=== PATIENT | male | born 1970 | race Caucasian/White ===

== ENCOUNTER → 2020-06-16 14:47 | Outpatient (REF) | payer MEDICAID, SELFPAY ==
--- NOTE | 2020-06-16 14:54 | ECG_ITS ---
Test Reason : LONG QT SYNDROME Blood Pressure : / mmHG Vent. Rate : 086 BPM Atrial Rate : 086 BPM P-R Int : 132 ms QRS Dur : 080 ms QT Int : 386 ms P-R-T Axes : 068 073 063 degrees QTc Int : 461 ms Normal sinus rhythm Normal ECG When compared with ECG of 14-DEC-2019 08:09, Previous ECG has undetermined rhythm, needs review Referred By: Mavis Díaz Electronically Signed By:Manfred Chappell
== END ==
LOC: HO.CARD 14:47
PROVIDERS: Visit Provider Family Medicine
DX: I48.91 Unspecified atrial fibrillation (principal)
CPT/HCPCS: 93005

== ENCOUNTER 2020-08-17 11:30 | Emergency (ER) | payer MEDICAID, SELFPAY ==
--- NOTE | 2020-08-17 | ECG_ITS ---
Test Reason : CHEST DISCOMFORT Blood Pressure : / mmHG Vent. Rate : 071 BPM Atrial Rate : 071 BPM P-R Int : 114 ms QRS Dur : 078 ms QT Int : 558 ms P-R-T Axes : 028 070 069 degrees QTc Int : 606 ms Normal sinus rhythm Nonspecific ST abnormality Abnormal ECG When compared with ECG of 16-JUN-2020 15:10, QT has lengthened Referred By: Generic ED Physician Electronically Signed By:ERA ANGELES MD
--- NOTE | ~2020-08-17 | XR_ITS ---
EXAMINATION: XR CHEST CLINICAL INFORMATION: Cough COMPARISON: Chest radiographs 12/11/2019, 08/29/2017 TECHNIQUE: PA x2 views of the chest was obtained. FINDINGS: Lungs are clear. There is no pneumothorax, airspace consolidation, groundglass opacity, or effusion. The heart is normal in size. The hilar and mediastinal contours and visualized bony structures are unremarkable. XR/XR chest 1V IMPRESSION: Unremarkable examination.
[2020-08-17 12:27] VITALS: BP 196/80; PULSE 65; RESP 16; TEMP 36.8; O2SAT 97; BMI 23.7
[2020-08-17 12:41] LABS: MANUAL DIFF FLAG NO
[2020-08-17 12:43] LABS: Basophils Percent Auto 0.3 % (0-2); Hematocrit 42.8 % (42-52); Hemoglobin 14.3 g/dl (14.0-18.0); Imm Gran Abs Auto 0.04 X10*3/uL (0.00-0.03); Imm Gran Pct Auto 0.3 % (0.0-0.4); Lymphocytes Absolute Auto 1.3 X10*3/uL (1.2-4.9); Mean Corpuscular HGB Conc 33.4 g/dl (31.0-36.0); Mean Corpuscular Hemoglobin 30.3 pg (27.0-33.0); Mean Corpuscular Volume 90.7 fL (80-98); Monocytes Absolute Auto 0.5 X10*3/uL (0.1-1.2); Monocytes Percent Auto 4.2 % (2-11); Neutrophils Absolute Auto 10.7 X10*3/uL (2.0-8.3); Neutrophils Percent Auto 85.2 % (45-73); Platelet Count 294 X10*3/uL (160-400); Red Blood Count 4.72 X10*6/uL (4.60-5.80); Red Cell Distribution Width 12.2 % (11.0-16.0); White Blood Count 12.5 X10*3/uL (4.8-10.8)
[2020-08-17 12:59] LABS: COVID-19 Test Negative (Negative)
[2020-08-17 13:06] LABS: Anion Gap 13 (12-20); Blood Urea Nitrogen 7 mg/dL (9-16); Calcium 9.4 mg/dL (8.4-10.2); Carbon Dioxide 30 mmol/L (22-29); Chloride 100 mmol/L (96-108); Estimated Glomerular Filt Rate > 60; Glucose Random 126 mg/dL (60-115); Potassium 3.4 mmol/L (3.3-5.1); Sodium 140 mmol/L (135-145)
[2020-08-17 14:38] LABS: Glucose Urine UA NEG (NEG); Leukocyte Esterase Urine NEG (NEG); Nitrite Urine NEG (NEG); PH 6.5 (5.0-8.0); Specific Gravity - Urine 1.025 (1.005-1.025); Urine Blood TRACE (NEG); Urine Ketones NEG (NEG); Urine Protein NEG (NEG-TRACE)
[2020-08-17 14:53] LABS: Appearance Urine CLEAR; Color Urine YELLOW
[2020-08-17 15:11] LABS: Mucus Urine 1+ /LPF; RBC Urine 0-2 /HPF (0); Squamous Epithelial Cell Urine TRACE /LPF; WBC Urine 0 /HPF (0-4)
[2020-08-17 18:27] VITALS: BP 151/77; PULSE 83; RESP 12; TEMP 36.5; O2SAT 100
--- NOTE | 2020-08-17 19:13 | ED.GENADULT ---
HPI - General Adult General Chief complaint: General Medical Stated complaint: weakness Time Seen by Provider: 08/17/20 19:00 Source: patient Mode of arrival: ambulatory Limitations: no limitations History of Present Illness HPI narrative: 50-year-old male walked to the emergency department for further evaluation patient is complaining of vague generalized weakness, abdominal discomfort, dry cough, patient claimed that his symptoms has improved while waiting to see a doctor in emergency department, but patient is requesting psych evaluation a patient admitted to hearing voices and feeling paranoid, patient also feels depressed without SI. Patient currently is homeless has no place to go tonight. Related Data Allergies Allergy/AdvReac Type Severity Reaction Status Date / Time No Known Allergies Allergy Unverified 02/24/20 17:27 Review of Systems Review of Systems: All other systems are reviewed and are negative Constitutional: Reports as per HPI and Reports no additional constitutional complaints Eyes: Reports as per HPI and Reports no additional eye complaints Reports system reviewed and no additional complaints, except as documented Cardiovascular: Reports as per HPI and Reports no additional cardiovascular complaints Respiratory: Reports as per HPI and Reports no additional respiratory complaints Gastrointestinal: Reports as per HPI and Reports no additional gastrointestinal complaints Genitourinary: Reports no additional female genitourinary complaints Musculoskeletal: Reports no additional musculoskeletal complaints Skin/Breast: Reports system reviewed and no additional complaints, except as docu Psychiatric: Reports no additional psychiatric complaints Endocrine: Reports no additional endocrine complaints Hematologic/Lymphatic: Reports no additional hematologic/lymphatic complaints Allergic/Immunologic: Reports no additional allergic/immunologic complaints Reports system reviewed and no additional complaints, except as documented and Reports Abnormal speech present PMFSH Past Medical History Medical History Anxiety Depression PTSD (post-traumatic stress disorder) Social History Social History Alcohol intake: never Smoking Status: Never smoker Use of substances other than those prescribed or required for medical reasons: No Advance Directives: No Advance Directives Information Provided: No Physical Exam Vital Signs: Vital Signs: Last Vital Signs Temp 97.7 F 08/17/20 18:27 Pulse 83 08/17/20 18:27 Resp 12 08/17/20 18:27 BP 151/77 H 08/17/20 18:27 Pulse Ox 100 08/17/20 18:27 Body Mass Index 23.7 Vital signs have been reviewed as appeared to be correct. Hypertensive. Heart rate normal. Respiration rate normal. Temperature normal. Oxygen saturation normal. Appearance: Alert. Oriented X3. No acute distress. Head: Normal external exam. Normocephalic. Atraumatic. No Emmanuel signs noted. No raccoon eyes noted Eyes: PERRLA. EOMI. Conjunctiva and sclera normal. Eyelids normal. ENT: TM's Normal. Pharynx normal. Uvula midline. Moist mucous membranes. No trismus noted. No drooling noted. No muffled voice noted. Neck: Normal inspection. Neck supple. FROM. No adenopathy. Thyroid Normal. No meningeal signs. No neck mass noted. CVS: Normal heart rate and rhythm. Heart sound normal. No murmurs noted. Pulses normal throughout. Respiratory: No respiratory distress. Painless inspiration. Breath sounds normal. No wheezes/rales/rhonchi noted. Chest nontender. No accessory muscle usage noted or decreased air movement noted. Abdomen: Soft and nontender. Bowel sounds normal in all 4 quadrants. No distention noted. No organomegaly noted. No visible injury noted. Back: No CVA tenderness. Full range of motion noted. Skin: Skin warm and dry. Normal skin color. Normal skin turgor. No rashes/lesions/lacerations noted. Extremities: No lower extremity edema. Extremities exhibit normal range of motion. Extremities nontender. Neuro: Oriented X 3. No motor deficit. No sensory deficit. Reflexes normal. Patient Appearance: Appropriate Patient Orientation: Person, Place, Time and Situation Level of Consciousness: Awake, Appropriate and Alert Patient Behavior: Talkative, Cooperative. Mood Description: Depressed Affect Description: Flat Patient Cognition Impaired: No Ability to Follow Directions: Good Speech Pattern: Spontaneous Speech Memory Description: Intact Hallucinations: Auditory hallucination, voices calling his names with no orders. Delusions: Not Present Thought Process: Logical Judgement: Fair Course Course Course Narrative: Assessment and plan. 50-year-old male who is homeless living in a hotel came in today with generalize nonspecific body ache, and coughing. Chest x-ray and physical exam and labs from today are unremarkable for acute pathology. Patient is requesting a psych evaluation because his paranoia, and depressive mood and auditory hallucination. Reevaluation(s) Reevaluation #1: 50-year-old male has been evaluated by care team, patient with chronic with 3 hallucination but appear organized, patient has no serious SI or HI, the plan is to admit the patient to respite tomorrow morning. Patient agreed on the plan. Medical workup is unremarkable Medical Decision Making Lab Data Lab results reviewed: Yes I reviewed the patient's lab results. Result diagrams: 08/17/20 12:36 08/17/20 12:36 Labs: Lab Results 08/17/20 08/17/20 08/17/20 Range/Units 12:36 12:36 12:36 WBC 12.5 H (4.8-10.8) X10*3/uL RBC 4.72 (4.60-5.80) X10*6/uL Hgb 14.3 (14.0-18.0) g/dl Hct 42.8 (42-52) % MCV 90.7 (80-98) fL MCH 30.3 (27.0-33.0) pg MCHC 33.4 (31.0-36.0) g/dl RDW 12.2 (11.0-16.0) % Plt Count 294 (160-400) X10*3/uL MPV 11.0 (9.4-12.4) fL Immature Gran % (Auto) 0.3 (0.0-0.4) % Neut % (Auto) 85.2 H (45-73) % Lymph % (Auto) 10.0 L (20-40) % [place] % (Auto) 4.2 (2-11) % Eos % (Auto) 0.0 (0-4) % Baso % (Auto) 0.3 (0-2) % Lymph # (Auto) 1.3 (1.2-4.9) X10*3/uL [place] # (Auto) 0.5 (0.1-1.2) X10*3/uL Eos # (Auto) 0.0 (0.0-0.4) X10*3/uL Baso # (Auto) 0.0 (0.0-0.2) X10*3/uL Abs Immat Gran (auto) 0.04 H (0.00-0.03) X10*3/uL Absolute Neuts (auto) 10.7 H (2.0-8.3) X10*3/uL Absolute Nucleated RBC 0.000 (0.0-0.012) X10*3/uL Nucleated RBC % (auto) 0.0 (0.0-0.2) /100WBC Sodium 140 (135-145) mmol/L Potassium 3.4 (3.3-5.1) mmol/L Chloride 100 (96-108) mmol/L Carbon Dioxide 30 H (22-29) mmol/L Anion Gap 13 (12-20) BUN 7 L (9-16) mg/dL Creatinine 0.99 (0.5-1.4) mg/dL Estim Creat Clear Calc 94.0 Estimated GFR > 60 Random Glucose 126 H (60-115) mg/dL Calcium 9.4 (8.4-10.2) mg/dL Urine Color Urine Appearance Urine pH (5.0-8.0) Ur Specific [place] (1.005-1.025) Urine Protein (NEG-TRACE) MG/DL Urine Glucose (UA) (NEG) MG/DL Urine Ketones (NEG) MG/DL Urine Blood (NEG) Urine Nitrite (NEG) Ur Leukocyte Esterase (NEG) Urine RBC (0) /HPF Urine WBC (0-4) /HPF Ur Squamous Epith Cells /LPF Urine Bacteria /LPF Urine Mucus /LPF Urine Opiates Screen (Not Detect) Ur Barbiturates Screen (Not Detect) Ur Phencyclidine Scrn (Not Detect) Ur Amphetamines Screen (Not Detect) U Benzodiazepines Scrn (Not Detect) Urine Cocaine Screen (Not Detect) U Marijuana (THC) Screen (Not Detect) COVID-19 (LICHA) Negative (Negative) COVID-19 Clin Com See Note 08/17/20 08/17/20 Range/Units 14:08 14:08 WBC (4.8-10.8) X10*3/uL RBC (4.60-5.80) X10*6/uL Hgb (14.0-18.0) g/dl Hct (42-52) % MCV (80-98) fL MCH (27.0-33.0) pg MCHC (31.0-36.0) g/dl RDW (11.0-16.0) % Plt Count (160-400) X10*3/uL MPV (9.4-12.4) fL Immature Gran % (Auto) (0.0-0.4) % Neut % (Auto) (45-73) % Lymph % (Auto) (20-40) % [place] % (Auto) (2-11) % Eos % (Auto) (0-4) % Baso % (Auto) (0-2) % Lymph # (Auto) (1.2-4.9) X10*3/uL [place] # (Auto) (0.1-1.2) X10*3/uL Eos # (Auto) (0.0-0.4) X10*3/uL Baso # (Auto) (0.0-0.2) X10*3/uL Abs Immat Gran (auto) (0.00-0.03) X10*3/uL Absolute Neuts (auto) (2.0-8.3) X10*3/uL Absolute Nucleated RBC (0.0-0.012) X10*3/uL Nucleated RBC % (auto) (0.0-0.2) /100WBC Sodium (135-145) mmol/L Potassium (3.3-5.1) mmol/L Chloride (96-108) mmol/L Carbon Dioxide (22-29) mmol/L Anion Gap (12-20) BUN (9-16) mg/dL Creatinine (0.5-1.4) mg/dL Estim Creat Clear Calc Estimated GFR Random Glucose (60-115) mg/dL Calcium (8.4-10.2) mg/dL Urine Color YELLOW Urine Appearance CLEAR Urine pH 6.5 (5.0-8.0) Ur Specific [place] 1.025 (1.005-1.025) Urine Protein NEG (NEG-TRACE) MG/DL Urine Glucose (UA) NEG (NEG) MG/DL Urine Ketones NEG (NEG) MG/DL Urine Blood TRACE (NEG) Urine Nitrite NEG (NEG) Ur Leukocyte Esterase NEG (NEG) Urine RBC 0-2 (0) /HPF Urine WBC 0 (0-4) /HPF Ur Squamous Epith Cells TRACE /LPF Urine Bacteria NONE /LPF Urine Mucus 1+ /LPF Urine Opiates Screen Not Detected (Not Detect) Ur Barbiturates Screen Not Detected (Not Detect) Ur Phencyclidine Scrn Not Detected (Not Detect) Ur Amphetamines Screen Not Detected (Not Detect) U Benzodiazepines Scrn POSITIVE H (Not Detect) Urine Cocaine Screen Not Detected (Not Detect) U Marijuana (THC) Screen Not Detected (Not Detect) COVID-19 (LICHA) (Negative) COVID-19 Clin Com Imaging Data Chest x-ray: Radiologist's impression: Unremarkable examination. Discharge Plan Discharge Clinical Impression: Cough, Generalized weakness, Auditory hallucination Depression Qualifiers: Depression Type: major depressive disorder Major depression recurrence: unspecified whether recurrent Active/Remission status: currently active Psychotic features: with psychotic features Patient Disposition: Home, Self-Care Instructions: Depression (ED) Referrals: Mavis Díaz MD [Primary Care Provider] - 2 days
--- NOTE | 2020-08-17 19:34 | PC.NURSE ---
Confirmed fax was received by [facility]. Report they will try to get to him on the overnight, otherwise it will be tomorrow morning
--- NOTE | 2020-08-17 19:39 | PC.NURSE ---
Security at bedside and pt changed over. Belongings list filled out and put into chart. Belongings into locker. Pt calm and cooperative.
--- NOTE | 2020-08-17 19:46 | PC.NURSE ---
CARE team consulted r/t N wait time. Allyssa to come down to ED and see pt. Report given to karina Venegas. Pt moved into position for sitter access, [id number]
--- NOTE | 2020-08-17 20:06 | PC.NURSE ---
pt a&O, no sob or chest pain. pt reports that he started hearing voices and seeing shadows 5 days ago. Waiting for [facility]
[2020-08-17 20:56] LABS: Amphetamine Screen Urine Not Detected (Not Detect); Barbiturates, Urine Not Detected (Not Detect); Benzodiazepines Screen Urine POSITIVE (Not Detect); Cannabinoid Screen Urine Not Detected (Not Detect); Cocaine Screen Urine Not Detected (Not Detect); Opiate Screen Urine Not Detected (Not Detect); Phencyclidine Screen Urine Not Detected (Not Detect)
--- NOTE | 2020-08-17 21:36 | PC.NURSE ---
care team in to assess pt. plan is for follow up with N tomorrow morning.
--- NOTE | 2020-08-17 21:36 | PC.NURSE ---
pt denies any self harm. Discharge plan review with .
--- NOTE | 2020-08-17 21:49 | MHC.CARE ---
CARE Team meets with pt at the request of Annie CELAYA to see if pt needs to wait for [facility] assessment. Pt identifies that he has been experiencing subtle AH for the past year, stating that he intermittently hears his name being called. Pt denies visual hallucinations. Pt's partner joins half way through this intervention and reports that for the past few days, pt has been increasingly despondent, eating and drinking very little. they report that pt's health has been declining over the past year and he is feeling weak and has lost weight. Pt also reports high anxiety, which he has struggled with for many years. He identifies recently feeling paranoid that someone may have tampered with his medications and also identifies anxious thoughts about police coming for him. He has a long hx of incarceration, most recent was 7 years for robbing a bank and he was released three years ago. He reported extensive hx of substance use and is currently on methadone. He denies any recent substance use. Pt has been homeless since being released from [facility] 3 years ago, often sleeping in his car or staying in motels. He identifies that increased symptoms may correlate with increased stress about his limited financial resources, as family has recently stopped taking his calls and are no longer supporting him. Pt has an outpatient therapist and psychiatrist at [facility]. He has been compliant with meds, however, states that he has not spoken with therapist or psychiatrist about increased paranoia or AH. He denies SI/HI and Dr. Leal reports that there are no medical causes for sx and pt is medically cleared. Pt does not meet criteria for IPLOC at this time, as he is not in imminent risk, and symptoms could likely be addressed on an outpatient basis. Pt and partner express interest in respite, which would be an appropriate level of care for current presentation. CARE Team speaks with Flor from [facility] who reports that there are no respite beds tonight, but pt should call tomorrow morning to inquire about bed availability and arrange for community crisis assessment tomorrow. Pt is not in imminent dnager and therefore it is not recommended that he wait in the ED for full crisis assessment. Recommendation discussed with Dr. Leal who agrees with plan to d/c. Pt and partner agree to call provided crisis hotline or return to ED if symptoms worsen.
== END 2020-08-17 21:53 | disposition home or self-care (01) ==
PROVIDERS: Emergency Provider Emergency Medicine; PCP Family Medicine
DX: F33.1 Major depressive disorder, recurrent, moderate (principal); R44.0 Auditory hallucinations; R05 Cough; R53.1 Weakness; Z20.822 Contact with and (suspected) exposure to COVID-19; Z59.0 Homelessness; Z79.899 Other long term (current) drug therapy
CPT/HCPCS: 36415; 71045; 80048; 80307; 81001; 85025; 87635; 93005; 99284

== ENCOUNTER 2020-10-20 16:20 | Emergency (ER) | payer MEDICAID, SELFPAY ==
--- NOTE | ~2020-10-20 | XR_ITS ---
EXAMINATION: XR CHEST CLINICAL INFORMATION: Chest pain COMPARISON: None TECHNIQUE: Frontal view of the chest was obtained. FINDINGS: No significant abnormality is noted involving the heart, lungs, mediastinum, bony thorax or soft tissues. XR/XR chest 1V IMPRESSION: Unremarkable examination.
--- NOTE | 2020-10-20 18:11 | ECG_ITS ---
Test Reason : CHEST PAIN Blood Pressure : / mmHG Vent. Rate : 098 BPM Atrial Rate : 098 BPM P-R Int : 120 ms QRS Dur : 090 ms QT Int : 338 ms P-R-T Axes : 079 092 010 degrees QTc Int : 431 ms Poor data quality Normal sinus rhythm Rightward axis Abnormal ECG When compared with ECG of 17-AUG-2020 18:48, [place] has shifted rightward Referred By: Suma Cardona Electronically Signed By:Manfred Chappell
[2020-10-20 18:23] VITALS: BP 146/81; PULSE 86; RESP 18; TEMP 36.9; O2SAT 100; BMI 25.1
[2020-10-20] MEDS: Lidocaine 4 % Patch ADH..PATCH 1 PATCH TRANSDERMA (18:50)
[2020-10-20] MEDS: Ibuprofen 600 MG TABLET PO (18:51)
[2020-10-20 19:10] LABS: MANUAL DIFF FLAG NO
[2020-10-20 19:11] LABS: Basophils Absolute Auto 0.1 X10*3/uL (0.0-0.2); Basophils Percent Auto 0.5 % (0-2); Eosinophils Percent Auto 0.2 % (0-4); Hematocrit 43.7 % (42-52); Hemoglobin 14.2 g/dl (14.0-18.0); Imm Gran Abs Auto 0.04 X10*3/uL (0.00-0.03); Imm Gran Pct Auto 0.4 % (0.0-0.4); Lymphocytes Absolute Auto 1.3 X10*3/uL (1.2-4.9); Lymphocytes Percent Auto 14.3 % (20-40); Mean Corpuscular HGB Conc 32.5 g/dl (31.0-36.0); Mean Corpuscular Hemoglobin 29.8 pg (27.0-33.0); Mean Corpuscular Volume 91.6 fL (80-98); Mean Platelet Volume 10.1 fL (9.4-12.4); Monocytes Absolute Auto 0.3 X10*3/uL (0.1-1.2); Monocytes Percent Auto 3.2 % (2-11); Neutrophils Absolute Auto 7.4 X10*3/uL (2.0-8.3); Neutrophils Percent Auto 81.4 % (45-73); Platelet Count 310 X10*3/uL (160-400); Red Blood Count 4.77 X10*6/uL (4.60-5.80); Red Cell Distribution Width 12.4 % (11.0-16.0); White Blood Count 9.1 X10*3/uL (4.8-10.8)
[2020-10-20 19:26] LABS: COVID-19 Test Negative (Negative)
[2020-10-20 19:30] LABS: Ethanol < 10 mg/dL
[2020-10-20 19:35] LABS: Alanine Aminotransferase 63 U/L (0-40); Albumin Level 4.5 g/dL (3.5-5.0); Alkaline Phosphatase 85 U/L (39-117); Anion Gap 12 (12-20); Aspartate Amino Transferase 127 U/L (5-37); Bilirubin Direct 0.2 mg/dL (0.0-0.5); Bilirubin Total 0.4 mg/dL (0.0-1.0); Blood Urea Nitrogen 17 mg/dL (9-16); Calcium 9.8 mg/dL (8.4-10.2); Carbon Dioxide 30 mmol/L (22-29); Chloride 101 mmol/L (96-108); Creatinine Clr Calc Pharmacy 91.2; Estimated Glomerular Filt Rate > 60; Glucose Random 89 mg/dL (60-115); Magnesium 2.3 mg/dL (1.6-2.6); Potassium 5.4 mmol/L (3.3-5.1); Sodium 138 mmol/L (135-145); Total Protein 7.6 g/dL (6.5-8.0)
[2020-10-20 19:41] LABS: B Type Natriuretic Peptide < 10 pg/mL (<100); Troponin-I High Sensitivity 5.6 ng/L (<3.5-35.0)
[2020-10-20] MEDS: Cyclobenzaprine HCl 10 MG TABLET PO (19:55)
[2020-10-20 19:56] VITALS: BP 115/75; PULSE 90; RESP 18; O2SAT 100
--- NOTE | 2020-10-20 20:01 | ED_ITS ---
HPI - Back Pain/Injury General Chief Complaint: Dyspnea <GALLO Suárez Last Filed: 10/20/20 23:29> Stated Complaint: Chest pain <GALLO Suárez Last Filed: 10/20/20 23:29> Time Seen by Provider: 10/20/20 17:48 <GALLO Suárez Last Filed: 10/20/20 23:29> Source: patient <GALLO Suárez Last Filed: 10/20/20 23:29> Mode of arrival: ambulatory <GALLO Suárez Last Filed: 10/20/20 23:29> Limitations: no limitations <GALLO Suárez Last Filed: 10/20/20 23:29> History of Present Illness HPI Narrative: 50-year-old male with a past medical history of myocardial infarction secondary to cocaine usage and nonischemic cardiomyopathy with an ejection fraction of 45%, prior drug usage of cocaine, prolonged QT interval, postural hypotension, syncopal episodes, anxiety, depression and PTSD presenting to the ED with complaints of left scapular pain for the past week worse today radiating to his left chest and reports strange sensations to touch. Denies any recent drug usage or alcohol usage. Denies any trauma, lightheadedness, dizziness, changes in vision, dyspnea on exertion, orthopnea, palpitations, nausea/vomiting/diarrhea/constipation, abdominal pain, black or bloody stools, lower extremity edema or calf tenderness. Denies recent travel on a long plane train or car ride. Denies history of hypercoagulation disorder. Denies recent surgery or immobilization. Denies being on any estrogen. Denies any additional complaints or concerns at this time. <GALLO Suárez - Last Filed: 10/20/20 23:29> MD elicited complaint: back pain <GALLO Suárez Last Filed: 10/20/20 23:29> Onset (ago): week(s) (1 week ) <GALLO Suárez Last Filed: 10/20/20 23:29> Timing: constant <GALLO Suárez Last Filed: 10/20/20 23:29> Severity: moderate <GALLO Suárez Last Filed: 10/20/20 23:29> Similar Symptoms Previously: No <GALLO Suárez - Last Filed: 10/20/20 23:29> Quality: aching <GALLO Suárez - Last Filed: 10/20/20 23:29> Location: left upper back (/scapular aspect) <GALLO Suárez - Last Filed: 10/20/20 23:29> Radiation: chest (Left anterior chest wall) <GALLO Suárez - Last Filed: 10/20/20 23:29> Exacerbating factors: movement, deep breaths and other (Palpation) <GALLO Suárez - Last Filed: 10/20/20 23:29> Relieving factors: none <GALLO Suárez Last Filed: 10/20/20 23:29> Context: other (Cannot recall) <GALLO Suárez - Last Filed: 10/20/20 23:29> Associated symptoms: other (Pain with deep inspiration) <GALLO Suárez Last Filed: 10/20/20 23:29> Work related injury: No <GALLO Suárez - Last Filed: 10/20/20 23:29> Related Data Home Medications: Previous Rx's Medication Instructions Recorded acetaminophen [Tylenol Extra 1,000 mg PO QID PRN #14 tab 10/20/20 Strength] cyclobenzaprine 10 mg PO Q8H #10 tab 10/20/20 ibuprofen 800 mg PO Q8H PRN #14 tab 10/20/20 lidocaine HCl [Aspercreme 1 appl TOPICAL BID PRN #120 g 10/20/20 (lidocaine HCl)] <GALLO Suárez Last Filed: 10/20/20 23:29> Allergies/Adverse Reactions: Allergies Allergy/AdvReac Type Severity Reaction Status Date / Time No Known Allergies Allergy Verified 10/20/20 18:22 <GALLO Suárez Last Filed: 10/20/20 23:29> Review of Systems Review of Systems: Constitutional : No trauma, No Weight loss, No Fever, No Chills, ENT/Mouth : No Hearing loss, No Ear Pain, No Nasal Congestion, No Sinus Pain, No Hoarseness, No sore throat, No Rhinorrhea, No Swallowing Difficulty Cardiovascular : Positive chest wall pain with pain with deep inspiration/shortness of breath Respiratory : No Cough, No Dyspnea Gastrointestinal : No Nausea, No Vomiting, No Diarrhea, No abdominal Pain, No Hematochezia, No Melena Genitourinary : No Dysuria, No Urinary Frequency, No Hematuria, No Urinary or Bowel Incontinence/retention Musculoskeletal : + Back pain/scapular pain radiating to left anterior chest wa ll, No neck pain, No joint stiffness, No joint swelling Skin : No Skin Lesions, No rash or signs of infection Neuro : No Weakness, No radiation, No Numbness, No Paresthesias, No headache, no loss of bowel or bladder incontinence, no saddle anesthesia, Focal weakness, No radiation Denies history of IV drug usage. <GALLO Suárez - Last Filed: 10/20/20 23:29> Yes all other systems are reviewed and are negative <GALLO Suárez - Last Filed: 10/20/20 23:29> [facility] Past Medical History Attestation statement: The following information was validated with the patient. <GALLO Suárez - Last Filed: 10/20/20 23:29> Medical History: Medical History Anxiety Depression PTSD (post-traumatic stress disorder) <GALLO Suárez - Last Filed: 10/20/20 23:29> Social History Social History: Social History Alcohol intake: never Smoked in Last 30 Days: No Use of substances other than those prescribed or required for medical reasons: No Advance Directives: No Advance Directives Information Provided: Yes <GALLO Suárez - Last Filed: 10/20/20 23:29> Physical Exam Vital Signs: Vital Signs: Last Vital Signs Temp 98.4 F 10/20/20 18:23 Pulse 90 10/20/20 21:40 Resp 18 10/20/20 21:40 BP 135/86 10/20/20 21:40 Pulse Ox 97 10/20/20 21:40 Body Mass Index 25.1 vital signs have been reviewed as normal and appeared to be correct. Blood pressure hypertensive 146/81. Heart rate normal. Respiration rate normal. Temperature normal. Oxygen saturation normal. <GALLO Suárez - Last Filed: 10/20/20 23:29> Vital Signs: Last Vital Signs Temp 98.4 F 10/20/20 18:23 Pulse 90 10/20/20 21:40 Resp 18 10/20/20 21:40 BP 135/86 10/20/20 21:40 Pulse Ox 97 10/20/20 21:40 Body Mass Index 25.1 <Dawson Young MD - Last Filed: 11/13/20 14:37> Appearance: Alert. Oriented X3. No acute distress. Head: Normal external exam. Normocephalic. Atraumatic. Eyes: PERRLA. EOMI. Conjunctiva and sclera normal. Eyelids normal. ENT: EAC normal. TM's Normal. Pharynx normal. Uvula midline. Moist mucous membranes. Neck: Normal inspection. Neck supple. FROM. No adenopathy. Thyroid Normal. No meningeal signs. No neck mass noted. CVS: Normal heart rate and rhythm. Heart sound normal. No murmurs noted. Pulses normal throughout. Respiratory: No respiratory distress. Painless inspiration. Breath sounds normal. No wheezes/rales/rhonchi noted. Chest nontender. No accessory muscle usage noted or decreased air movement noted. No rashes/lesions hash induration/fluctuance or signs of infection noted. Abdomen: Soft and nontender. Bowel sounds normal in all 4 quadrants. No distention noted. No organomegaly noted. No visible injury noted. Back: No CVA tenderness. Full range of motion noted. No obvious deformities, or edema. No mid thoracic/lumbar tenderness. No paraspinous tenderness. Patient with tenderness to palpation to left scapular region. Full ROM in back and lower extremities. 5/5 strength hip extension/flexion, abduction, adduction. Straight leg raise test negative on right; Straight leg raise test negative on left; Reflexes normal ankle and knee bilaterally; EHL motor strength normal bilaterally. No rashes/lesion/induration/fluctuance or signs infection noted. Skin: Skin warm and dry. Normal skin color. Normal skin turgor. No rashes/lesions/lacerations noted. Extremities: No lower extremity edema. Extremities exhibit normal range of motion. Extremities nontender. Neuro: Oriented X 3. No motor deficit. No sensory deficit. Reflexes normal. Patient has a normal steady gait. <GALLO Suárez - Last Filed: 10/20/20 2 3:29> Course Course Course Narrative: 9pm - labs reviewed and patient potassium is 5.4. BUN 17. AST/ALT 127/63. Troponin 5.6. All other labs are within normal limits. UA within normal limits no evidence of UTI. Patient positive for benzos negative for all other drugs. Patient negative for EtOH. Negative for COVID. Chest x-ray negative for any acute processes. EKG normal sinus rhythm no acute ischemic changes and similar when compared to prior EKG. - therefore patient will have a repeat troponin. I also added hepatitis panel which includes hepatitis a/B/C due to elevated LFTs, provide 45gm of Kayexalate then recheck the patient's potassium level. <GALLO Suárez - Last Filed: 10/20/20 23:29> I have reviewed the chart <Dawson Young MD - Last Filed: 11/13/20 14:37> Reevaluation(s) Reevaluation #1: - repeat troponin negative delta. Repeat potassium 4.9 which is improved after the Kayexalate. Pending hepatitis panel. - patient most likely muscle strain will DC home with symptomatic treatment instructions to return if any new or worsening symptoms to follow up with primar care provider. Patient understands agrees with this plan. <GALLO Suárez - Last Filed: 10/20/20 23:29> Time: 23:26 <GALLO Suárez - Last Filed: 10/20/20 23:29> MDM - Back Pain/Injury MDM Narrative Medical decision making narrative: 17:48pm - 50-year-old male with a past medical history of myocardial infarction secondary to cocaine usage and nonischemic cardiomyopathy with an ejection fraction of 45%, prior drug usage of cocaine, prolonged QT interval, postural hypotension, syncopal episodes, anxiety, depression and PTSD presenting to the ED with complaints of left scapular pain for the past week worse today radiating to his left chest and reports strange sensations to touch. - on exam patient has tenderness to palpation to left lower scapular region with mild soft tissue swelling. No rashes/lesion/induration or signs of infection noted. Patient also has tenderness to palpation on the left anterior chest wall/lateral aspect. No rashes/in/induration/fluctuance or signs of action noted. Otherwise patient is alert and oriented x3. Not in any acute distress. Vital signs are stable and within normal limits. CV RRR. Lungs clear to auscultation. Abdomen is soft and nontender. No lower extremity edema noted or calf tenderness noted. - Plan: Labs, chest x-ray, EKG. Provide 600 mg of Motrin, 10 mg of Flexeril and 1 Lidoderm patch and re-evaluate. <GALLO Suárez - Last Filed: 10/20/20 23:29> Medical Records Attestation: I reviewed the patient's medical records. <GALLO Suárez - Last Filed: 10/20/20 23:29> Lab Data Attestation: I reviewed the patient's lab results. <GALLO Suárez - Last Filed: 10/20/20 23:29> Result diagrams: : 10/20/20 19:04 10/20/20 22:10 <GALLO Suárez - Last Filed: 10/20/20 23:29> Labs: Lab Results 10/20/20 10/20/20 10/20/20 Range/Units 09:03 19:03 19:03 WBC (4.8-10.8) X10*3/uL RBC (4.60-5.80) X10*6/uL Hgb (14.0-18.0) g/dl Hct (42-52) % MCV (80-98) fL MCH (27.0-33.0) pg MCHC (31.0-36.0) g/dl RDW (11.0-16.0) % Plt Count (160-400) X10*3/uL MPV (9.4-12.4) fL Immature Gran % (Auto) (0.0-0.4) % Neut % (Auto) (45-73) % Lymph % (Auto) (20-40) % [place] % (Auto) (2-11) % Eos % (Auto) (0-4) % Baso % (Auto) (0-2) % Lymph # (Auto) (1.2-4.9) X10*3/uL [place] # (Auto) (0.1-1.2) X10*3/uL Eos # (Auto) (0.0-0.4) X10*3/uL Baso # (Auto) (0.0-0.2) X10*3/uL Abs Immat Gran (auto) (0.00-0.03) X10*3/uL Absolute Neuts (auto) (2.0-8.3) X10*3/uL Absolute Nucleated RBC (0.0-0.012) X10*3/uL Nucleated RBC % (auto) (0.0-0.2) /100WBC PT (10.8-13.0) SEC INR (0.9-1.1) D-Dimer NG/ML Hold Blue Top Sodium (135-145) mmol/L Potassium (3.3-5.1) mmol/L Chloride (96-108) mmol/L Carbon Dioxide (22-29) mmol/L Anion Gap (12-20) BUN (9-16) mg/dL Creatinine (0.5-1.4) mg/dL Estim Creat Clear Calc Estimated GFR Random Glucose (60-115) mg/dL Calcium (8.4-10.2) mg/dL Magnesium (1.6-2.6) mg/dL Total Bilirubin (0.0-1.0) mg/dL Direct Bilirubin (0.0-0.5) mg/dL AST (5-37) U/L ALT (0-40) U/L Alkaline Phosphatase (39-117) U/L Troponin I High Sens 5.6 (<3.5-35.0) ng/L B-Natriuretic Peptide < 10 (<100) pg/mL Total Protein (6.5-8.0) g/dL Albumin (3.5-5.0) g/dL Urine Color Urine Appearance Urine pH (5.0-8.0) Ur Specific [place] (1.005-1.025) Urine Protein (NEG-TRACE) MG/DL Urine Glucose (UA) (NEG) MG/DL Urine Ketones (NEG) MG/DL Urine Blood (NEG) Urine Nitrite (NEG) Ur Leukocyte Esterase (NEG) Urine Opiates Screen (Not Detect) Ur Barbiturates Screen (Not Detect) Ur Phencyclidine Scrn (Not Detect) Ur Amphetamines Screen (Not Detect) U Benzodiazepines Scrn (Not Detect) Urine Cocaine Screen (Not Detect) U Marijuana (THC) Screen (Not Detect) Ethyl Alcohol mg/dL COVID-19 (LICHA) Negative (Negative) COVID-19 Clin Com See Note Hepatitis A IgM Ab Nonreactive (Nonreactive) Hep Bs Antigen Negative (Negative) Hep Bs Antibody NONREACTIVE (Nonreactive) Hep B Core Total Ab Nonreactive (Nonreactive) Hepatitis C Ab (EIA) Nonreactive (Nonreactive) 10/20/20 10/20/20 10/20/20 Range/Units 19:04 19:04 19:04 WBC 9.1 (4.8-10.8) X10*3/uL RBC 4.77 (4.60-5.80) X10*6/uL Hgb 14.2 (14.0-18.0) g/dl Hct 43.7 (42-52) % MCV 91.6 (80-98) fL MCH 29.8 (27.0-33.0) pg MCHC 32.5 (31.0-36.0) g/dl RDW 12.4 (11.0-16.0) % Plt Count 310 (160-400) X10*3/uL MPV 10.1 (9.4-12.4) fL Immature Gran % (Auto) 0.4 (0.0-0.4) % Neut % (Auto) 81.4 H (45-73) % Lymph % (Auto) 14.3 L (20-40) % [place] % (Auto) 3.2 (2-11) % Eos % (Auto) 0.2 (0-4) % Baso % (Auto) 0.5 (0-2) % Lymph # (Auto) 1.3 (1.2-4.9) X10*3/uL [place] # (Auto) 0.3 (0.1-1.2) X10*3/uL Eos # (Auto) 0.0 (0.0-0.4) X10*3/uL Baso # (Auto) 0.1 (0.0-0.2) X10*3/uL Abs Immat Gran (auto) 0.04 H (0.00-0.03) X10*3/uL Absolute Neuts (auto) 7.4 (2.0-8.3) X10*3/uL Absolute Nucleated RBC 0.000 (0.0-0.012) X10*3/uL Nucleated RBC % (auto) 0.0 (0.0-0.2) /100WBC PT 12.9 (10.8-13.0) SEC INR 1.1 (0.9-1.1) D-Dimer < 200 NG/ML Hold Blue Top SEE NOTE Sodium 138 (135-145) mmol/L Potassium 5.4 H D (3.3-5.1) mmol/L Chloride 101 (96-108) mmol/L Carbon Dioxide 30 H (22-29) mmol/L Anion Gap 12 (12-20) BUN 17 H D (9-16) mg/dL Creatinine 1.02 (0.5-1.4) mg/dL Estim Creat Clear Calc 91.2 Estimated GFR > 60 Random Glucose 89 (60-115) mg/dL Calcium 9.8 (8.4-10.2) mg/dL Magnesium 2.3 (1.6-2.6) mg/dL Total Bilirubin 0.4 (0.0-1.0) mg/dL Direct Bilirubin 0.2 (0.0-0.5) mg/dL AST 127 H (5-37) U/L ALT 63 H (0-40) U/L Alkaline Phosphatase 85 (39-117) U/L Troponin I High Sens (<3.5-35.0) ng/L B-Natriuretic Peptide (<100) pg/mL Total Protein 7.6 (6.5-8.0) g/dL Albumin 4.5 (3.5-5.0) g/dL Urine Color Urine Appearance Urine pH (5.0-8.0) Ur Specific [place] (1.005-1.025) Urine Protein (NEG-TRACE) MG/DL Urine Glucose (UA) (NEG) MG/DL Urine Ketones (NEG) MG/DL Urine Blood (NEG) Urine Nitrite (NEG) Ur Leukocyte Esterase (NEG) Urine Opiates Screen (Not Detect) Ur Barbiturates Screen (Not Detect) Ur Phencyclidine Scrn (Not Detect) Ur Amphetamines Screen (Not Detect) U Benzodiazepines Scrn (Not Detect) Urine Cocaine Screen (Not Detect) U Marijuana (THC) Screen (Not Detect) Ethyl Alcohol mg/dL COVID-19 (LICHA) (Negative) COVID-19 Clin Com Hepatitis A IgM Ab (Nonreactive) Hep Bs Antigen (Negative) Hep Bs Antibody (Nonreactive) Hep B Core Total Ab (Nonreactive) Hepatitis C Ab (EIA) (Nonreactive) 10/20/20 10/20/20 10/20/20 Range/Units 19:04 20:30 20:30 WBC (4.8-10.8) X10*3/uL RBC (4.60-5.80) X10*6/uL Hgb (14.0-18.0) g/dl Hct (42-52) % MCV (80-98) fL MCH (27.0-33.0) pg MCHC (31.0-36.0) g/dl RDW (11.0-16.0) % Plt Count (160-400) X10*3/uL MPV (9.4-12.4) fL Immature Gran % (Auto) (0.0-0.4) % Neut % (Auto) (45-73) % Lymph % (Auto) (20-40) % [place] % (Auto) (2-11) % Eos % (Auto) (0-4) % Baso % (Auto) (0-2) % Lymph # (Auto) (1.2-4.9) X10*3/uL [place] # (Auto) (0.1-1.2) X10*3/uL Eos # (Auto) (0.0-0.4) X10*3/uL Baso # (Auto) (0.0-0.2) X10*3/uL Abs Immat Gran (auto) (0.00-0.03) X10*3/uL Absolute Neuts (auto) (2.0-8.3) X10*3/uL Absolute Nucleated RBC (0.0-0.012) X10*3/uL Nucleated RBC % (auto) (0.0-0.2) /100WBC PT (10.8-13.0) SEC INR (0.9-1.1) D-Dimer NG/ML Hold Blue Top Sodium (135-145) mmol/L Potassium (3.3-5.1) mmol/L Chloride (96-108) mmol/L Carbon Dioxide (22-29) mmol/L Anion Gap (12-20) BUN (9-16) mg/dL Creatinine (0.5-1.4) mg/dL Estim Creat Clear Calc Estimated GFR Random Glucose (60-115) mg/dL Calcium (8.4-10.2) mg/dL Magnesium (1.6-2.6) mg/dL Total Bilirubin (0.0-1.0) mg/dL Direct Bilirubin (0.0-0.5) mg/dL AST (5-37) U/L ALT (0-40) U/L Alkaline Phosphatase (39-117) U/L Troponin I High Sens (<3.5-35.0) ng/L B-Natriuretic Peptide (<100) pg/mL Total Protein (6.5-8.0) g/dL Albumin (3.5-5.0) g/dL Urine Color YELLOW Urine Appearance CLEAR Urine pH 7.5 (5.0-8.0) Ur Specific [place] 1.015 (1.005-1.025) Urine Protein NEG (NEG-TRACE) MG/DL Urine Glucose (UA) NEG (NEG) MG/DL Urine Ketones NEG (NEG) MG/DL Urine Blood NEG (NEG) Urine Nitrite NEG (NEG) Ur Leukocyte Esterase NEG (NEG) Urine Opiates Screen Not Detected (Not Detect) Ur Barbiturates Screen Not Detected (Not Detect) Ur Phencyclidine Scrn Not Detected (Not Detect) Ur Amphetamines Screen Not Detected (Not Detect) U Benzodiazepines Scrn POSITIVE H (Not Detect) Urine Cocaine Screen Not Detected (Not Detect) U Marijuana (THC) Screen Not Detected (Not Detect) Ethyl Alcohol < 10 mg/dL COVID-19 (LICHA) (Negative) COVID-19 Clin Com Hepatitis A IgM Ab (Nonreactive) Hep Bs Antigen (Negative) Hep Bs Antibody (Nonreactive) Hep B Core Total Ab (Nonreactive) Hepatitis C Ab (EIA) (Nonreactive) 10/20/20 10/20/20 Range/Units 22:10 22:10 WBC (4.8-10.8) X10*3/uL RBC (4.60-5.80) X10*6/uL Hgb (14.0-18.0) g/dl Hct (42-52) % MCV (80-98) fL MCH (27.0-33.0) pg MCHC (31.0-36.0) g/dl RDW (11.0-16.0) % Plt Count (160-400) X10*3/uL MPV (9.4-12.4) fL Immature Gran % (Auto) (0.0-0.4) % Neut % (Auto) (45-73) % Lymph % (Auto) (20-40) % [place] % (Auto) (2-11) % Eos % (Auto) (0-4) % Baso % (Auto) (0-2) % Lymph # (Auto) (1.2-4.9) X10*3/uL [place] # (Auto) (0.1-1.2) X10*3/uL Eos # (Auto) (0.0-0.4) X10*3/uL Baso # (Auto) (0.0-0.2) X10*3/uL Abs Immat Gran (auto) (0.00-0.03) X10*3/uL Absolute Neuts (auto) (2.0-8.3) X10*3/uL Absolute Nucleated RBC (0.0-0.012) X10*3/uL Nucleated RBC % (auto) (0.0-0.2) /100WBC PT (10.8-13.0) SEC INR (0.9-1.1) D-Dimer NG/ML Hold Blue Top Sodium 135 (135-145) mmol/L Potassium 4.9 (3.3-5.1) mmol/L Chloride 99 (96-108) mmol/L Carbon Dioxide 29 (22-29) mmol/L Anion Gap 12 (12-20) BUN 16 (9-16) mg/dL Creatinine 0.97 (0.5-1.4) mg/dL Estim Creat Clear Calc 95.9 Estimated GFR > 60 Random Glucose 88 (60-115) mg/dL Calcium 9.9 (8.4-10.2) mg/dL Magnesium (1.6-2.6) mg/dL Total Bilirubin (0.0-1.0) mg/dL Direct Bilirubin (0.0-0.5) mg/dL AST (5-37) U/L ALT (0-40) U/L Alkaline Phosphatase (39-117) U/L Troponin I High Sens 4.0 (<3.5-35.0) ng/L B-Natriuretic Peptide (<100) pg/mL Total Protein (6.5-8.0) g/dL Albumin (3.5-5.0) g/dL Urine Color Urine Appearance Urine pH (5.0-8.0) Ur Specific [place] (1.005-1.025) Urine Protein (NEG-TRACE) MG/DL Urine Glucose (UA) (NEG) MG/DL Urine Ketones (NEG) MG/DL Urine Blood (NEG) Urine Nitrite (NEG) Ur Leukocyte Esterase (NEG) Urine Opiates Screen (Not Detect) Ur Barbiturates Screen (Not Detect) Ur Phencyclidine Scrn (Not Detect) Ur Amphetamines Screen (Not Detect) U Benzodiazepines Scrn (Not Detect) Urine Cocaine Screen (Not Detect) U Marijuana (THC) Screen (Not Detect) Ethyl Alcohol mg/dL COVID-19 (LICHA) (Negative) COVID-19 Clin Com Hepatitis A IgM Ab (Nonreactive) Hep Bs Antigen (Negative) Hep Bs Antibody (Nonreactive) Hep B Core Total Ab (Nonreactive) Hepatitis C Ab (EIA) (Nonreactive) <GALLO Suárez - Last Filed: 10/20/20 23:29> Lab Results 10/20/20 10/20/20 10/20/20 Range/Units 09:03 19:03 19:03 WBC (4.8-10.8) X10*3/uL RBC (4.60-5.80) X10*6/uL Hgb (14.0-18.0) g/dl Hct (42-52) % MCV (80-98) fL MCH (27.0-33.0) pg MCHC (31.0-36.0) g/dl RDW (11.0-16.0) % Plt Count (160-400) X10*3/uL MPV (9.4-12.4) fL Immature Gran % (Auto) (0.0-0.4) % Neut % (Auto) (45-73) % Lymph % (Auto) (20-40) % [place] % (Auto) (2-11) % Eos % (Auto) (0-4) % Baso % (Auto) (0-2) % Lymph # (Auto) (1.2-4.9) X10*3/uL [place] # (Auto) (0.1-1.2) X10*3/uL Eos # (Auto) (0.0-0.4) X10*3/uL Baso # (Auto) (0.0-0.2) X10*3/uL Abs Immat Gran (auto) (0.00-0.03) X10*3/uL Absolute Neuts (auto) (2.0-8.3) X10*3/uL Absolute Nucleated RBC (0.0-0.012) X10*3/uL Nucleated RBC % (auto) (0.0-0.2) /100WBC PT (10.8-13.0) SEC INR (0.9-1.1) D-Dimer NG/ML Hold Blue Top Sodium (135-145) mmol/L Potassium (3.3-5.1) mmol/L Chloride (96-108) mmol/L Carbon Dioxide (22-29) mmol/L Anion Gap (12-20) BUN (9-16) mg/dL Creatinine (0.5-1.4) mg/dL Estim Creat Clear Calc Estimated GFR Random Glucose (60-115) mg/dL Calcium (8.4-10.2) mg/dL Magnesium (1.6-2.6) mg/dL Total Bilirubin (0.0-1.0) mg/dL Direct Bilirubin (0.0-0.5) mg/dL AST (5-37) U/L ALT (0-40) U/L Alkaline Phosphatase (39-117) U/L Troponin I High Sens 5.6 (<3.5-35.0) ng/L B-Natriuretic Peptide < 10 (<100) pg/mL Total Protein (6.5-8.0) g/dL Albumin (3.5-5.0) g/dL Urine Color Urine Appearance Urine pH (5.0-8.0) Ur Specific [place] (1.005-1.025) Urine Protein (NEG-TRACE) MG/DL Urine Glucose (UA) (NEG) MG/DL Urine Ketones (NEG) MG/DL Urine Blood (NEG) Urine Nitrite (NEG) Ur Leukocyte Esterase (NEG) Urine Opiates Screen (Not Detect) Ur Barbiturates Screen (Not Detect) Ur Phencyclidine Scrn (Not Detect) Ur Amphetamines Screen (Not Detect) U Benzodiazepines Scrn (Not Detect) Urine Cocaine Screen (Not Detect) U Marijuana (THC) Screen (Not Detect) Ethyl Alcohol mg/dL COVID-19 (LICHA) Negative (Negative) COVID-19 Clin Com See Note Hepatitis A IgM Ab Nonreactive (Nonreactive) Hep Bs Antigen Negative (Negative) Hep Bs Antibody NONREACTIVE (Nonreactive) Hep B Core Total Ab Nonreactive (Nonreactive) Hepatitis C Ab (EIA) Nonreactive (Nonreactive) 10/20/20 10/20/20 10/20/20 Range/Units 19:04 19:04 19:04 WBC 9.1 (4.8-10.8) X10*3/uL RBC 4.77 (4.60-5.80) X10*6/uL Hgb 14.2 (14.0-18.0) g/dl Hct 43.7 (42-52) % MCV 91.6 (80-98) fL MCH 29.8 (27.0-33.0) pg MCHC 32.5 (31.0-36.0) g/dl RDW 12.4 (11.0-16.0) % Plt Count 310 (160-400) X10*3/uL MPV 10.1 (9.4-12.4) fL Immature Gran % (Auto) 0.4 (0.0-0.4) % Neut % (Auto) 81.4 H (45-73) % Lymph % (Auto) 14.3 L (20-40) % [place] % (Auto) 3.2 (2-11) % Eos % (Auto) 0.2 (0-4) % Baso % (Auto) 0.5 (0-2) % Lymph # (Auto) 1.3 (1.2-4.9) X10*3/uL [place] # (Auto) 0.3 (0.1-1.2) X10*3/uL Eos # (Auto) 0.0 (0.0-0.4) X10*3/uL Baso # (Auto) 0.1 (0.0-0.2) X10*3/uL Abs Immat Gran (auto) 0.04 H (0.00-0.03) X10*3/uL Absolute Neuts (auto) 7.4 (2.0-8.3) X10*3/uL Absolute Nucleated RBC 0.000 (0.0-0.012) X10*3/uL Nucleated RBC % (auto) 0.0 (0.0-0.2) /100WBC PT 12.9 (10.8-13.0) SEC INR 1.1 (0.9-1.1) D-Dimer < 200 NG/ML Hold Blue Top SEE NOTE Sodium 138 (135-145) mmol/L Potassium 5.4 H D (3.3-5.1) mmol/L Chloride 101 (96-108) mmol/L Carbon Dioxide 30 H (22-29) mmol/L Anion Gap 12 (12-20) BUN 17 H D (9-16) mg/dL Creatinine 1.02 (0.5-1.4) mg/dL Estim Creat Clear Calc 91.2 Estimated GFR > 60 Random Glucose 89 (60-115) mg/dL Calcium 9.8 (8.4-10.2) mg/dL Magnesium 2.3 (1.6-2.6) mg/dL Total Bilirubin 0.4 (0.0-1.0) mg/dL Direct Bilirubin 0.2 (0.0-0.5) mg/dL AST 127 H (5-37) U/L ALT 63 H (0-40) U/L Alkaline Phosphatase 85 (39-117) U/L Troponin I High Sens (<3.5-35.0) ng/L B-Natriuretic Peptide (<100) pg/mL Total Protein 7.6 (6.5-8.0) g/dL Albumin 4.5 (3.5-5.0) g/dL Urine Color Urine Appearance Urine pH (5.0-8.0) Ur Specific [place] (1.005-1.025) Urine Protein (NEG-TRACE) MG/DL Urine Glucose (UA) (NEG) MG/DL Urine Ketones (NEG) MG/DL Urine Blood (NEG) Urine Nitrite (NEG) Ur Leukocyte Esterase (NEG) Urine Opiates Screen (Not Detect) Ur Barbiturates Screen (Not Detect) Ur Phencyclidine Scrn (Not Detect) Ur Amphetamines Screen (Not Detect) U Benzodiazepines Scrn (Not Detect) Urine Cocaine Screen (Not Detect) U Marijuana (THC) Screen (Not Detect) Ethyl Alcohol mg/dL COVID-19 ([facility]) (Negative) COVID-19 Clin Com Hepatitis A IgM Ab (Nonreactive) Hep Bs Antigen (Negative) Hep Bs Antibody (Nonreactive) Hep B Core Total Ab (Nonreactive) Hepatitis C Ab (EIA) (Nonreactive) 10/20/20 10/20/20 10/20/20 Range/Units 19:04 20:30 20:30 WBC (4.8-10.8) X10*3/uL RBC (4.60-5.80) X10*6/uL Hgb (14.0-18.0) g/dl Hct (42-52) % MCV (80-98) fL MCH (27.0-33.0) pg MCHC (31.0-36.0) g/dl RDW (11.0-16.0) % Plt Count (160-400) X10*3/uL MPV (9.4-12.4) fL Immature Gran % (Auto) (0.0-0.4) % Neut % (Auto) (45-73) % Lymph % (Auto) (20-40) % [place] % (Auto) (2-11) % Eos % (Auto) (0-4) % Baso % (Auto) (0-2) % Lymph # (Auto) (1.2-4.9) X10*3/uL [place] # (Auto) (0.1-1.2) X10*3/uL Eos # (Auto) (0.0-0.4) X10*3/uL Baso # (Auto) (0.0-0.2) X10*3/uL Abs Immat Gran (auto) (0.00-0.03) X10*3/uL Absolute Neuts (auto) (2.0-8.3) X10*3/uL Absolute Nucleated RBC (0.0-0.012) X10*3/uL Nucleated RBC % (auto) (0.0-0.2) /100WBC PT (10.8-13.0) SEC INR (0.9-1.1) D-Dimer NG/ML Hold Blue Top Sodium (135-145) mmol/L Potassium (3.3-5.1) mmol/L Chloride (96-108) mmol/L Carbon Dioxide (22-29) mmol/L Anion Gap (12-20) BUN (9-16) mg/dL Creatinine (0.5-1.4) mg/dL Estim Creat Clear Calc Estimated GFR Random Glucose (60-115) mg/dL Calcium (8.4-10.2) mg/dL Magnesium (1.6-2.6) mg/dL Total Bilirubin (0.0-1.0) mg/dL Direct Bilirubin (0.0-0.5) mg/dL AST (5-37) U/L ALT (0-40) U/L Alkaline Phosphatase (39-117) U/L Troponin I High Sens (<3.5-35.0) ng/L B-Natriuretic Peptide (<100) pg/mL Total Protein (6.5-8.0) g/dL Albumin (3.5-5.0) g/dL Urine Color YELLOW Urine Appearance CLEAR Urine pH 7.5 (5.0-8.0) Ur Specific [place] 1.015 (1.005-1.025) Urine Protein NEG (NEG-TRACE) MG/DL Urine Glucose (UA) NEG (NEG) MG/DL Urine Ketones NEG (NEG) MG/DL Urine Blood NEG (NEG) Urine Nitrite NEG (NEG) Ur Leukocyte Esterase NEG (NEG) Urine Opiates Screen Not Detected (Not Detect) Ur Barbiturates Screen Not Detected (Not Detect) Ur Phencyclidine Scrn Not Detected (Not Detect) Ur Amphetamines Screen Not Detected (Not Detect) U Benzodiazepines Scrn POSITIVE H (Not Detect) Urine Cocaine Screen Not Detected (Not Detect) U Marijuana (THC) Screen Not Detected (Not Detect) Ethyl Alcohol < 10 mg/dL COVID-19 ([facility]) (Negative) COVID-19 Clin Com Hepatitis A IgM Ab (Nonreactive) Hep Bs Antigen (Negative) Hep Bs Antibody (Nonreactive) Hep B Core Total Ab (Nonreactive) Hepatitis C Ab (EIA) (Nonreactive) 10/20/20 10/20/20 Range/Units 22:10 22:10 WBC (4.8-10.8) X10*3/uL RBC (4.60-5.80) X10*6/uL Hgb (14.0-18.0) g/dl Hct (42-52) % MCV (80-98) fL MCH (27.0-33.0) pg MCHC (31.0-36.0) g/dl RDW (11.0-16.0) % Plt Count (160-400) X10*3/uL MPV (9.4-12.4) fL Immature Gran % (Auto) (0.0-0.4) % Neut % (Auto) (45-73) % Lymph % (Auto) (20-40) % [place] % (Auto) (2-11) % Eos % (Auto) (0-4) % Baso % (Auto) (0-2) % Lymph # (Auto) (1.2-4.9) X10*3/uL [place] # (Auto) (0.1-1.2) X10*3/uL Eos # (Auto) (0.0-0.4) X10*3/uL Baso # (Auto) (0.0-0.2) X10*3/uL Abs Immat Gran (auto) (0.00-0.03) X10*3/uL Absolute Neuts (auto) (2.0-8.3) X10*3/uL Absolute Nucleated RBC (0.0-0.012) X10*3/uL Nucleated RBC % (auto) (0.0-0.2) /100WBC PT (10.8-13.0) SEC INR (0.9-1.1) D-Dimer NG/ML Hold Blue Top Sodium 135 (135-145) mmol/L Potassium 4.9 (3.3-5.1) mmol/L Chloride 99 (96-108) mmol/L Carbon Dioxide 29 (22-29) mmol/L Anion Gap 12 (12-20) BUN 16 (9-16) mg/dL Creatinine 0.97 (0.5-1.4) mg/dL Estim Creat Clear Calc 95.9 Estimated GFR > 60 Random Glucose 88 (60-115) mg/dL Calcium 9.9 (8.4-10.2) mg/dL Magnesium (1.6-2.6) mg/dL Total Bilirubin (0.0-1.0) mg/dL Direct Bilirubin (0.0-0.5) mg/dL AST (5-37) U/L ALT (0-40) U/L Alkaline Phosphatase (39-117) U/L Troponin I High Sens 4.0 (<3.5-35.0) ng/L B-Natriuretic Peptide (<100) pg/mL Total Protein (6.5-8.0) g/dL Albumin (3.5-5.0) g/dL Urine Color Urine Appearance Urine pH (5.0-8.0) Ur Specific [place] (1.005-1.025) Urine Protein (NEG-TRACE) MG/DL Urine Glucose (UA) (NEG) MG/DL Urine Ketones (NEG) MG/DL Urine Blood (NEG) Urine Nitrite (NEG) Ur Leukocyte Esterase (NEG) Urine Opiates Screen (Not Detect) Ur Barbiturates Screen (Not Detect) Ur Phencyclidine Scrn (Not Detect) Ur Amphetamines Screen (Not Detect) U Benzodiazepines Scrn (Not Detect) Urine Cocaine Screen (Not Detect) U Marijuana (THC) Screen (Not Detect) Ethyl Alcohol mg/dL COVID-19 ([facility]) (Negative) COVID-19 Clin Com Hepatitis A IgM Ab (Nonreactive) Hep Bs Antigen (Negative) Hep Bs Antibody (Nonreactive) Hep B Core Total Ab (Nonreactive) Hepatitis C Ab (EIA) (Nonreactive) <Dawson Young MD - Last Filed: 11/13/20 14:37> Imaging Data Chest x-ray: Attestation: I personally reviewed and interpreted this imaging study as follows: <GALLO Sáurez - Last Filed: 10/20/20 23:29> Radiologist's impression: FINDINGS: No significant abnormality is noted involving the heart, lungs, mediastinum, bony thorax or soft tissues. XR/XR chest 1V IMPRESSION: Unremarkable examination. <GALLO Suárez - Last Filed: 10/20/20 23:29> ECG Data Attestation: I personally reviewed and interpreted this ECG as follows: <GALLO Suárez - Last Filed: 10/20/20 23:29> ECG interpretation date: 10/20/20 <GALLO Suárez - Last Filed: 10/20/20 23:29> ECG interpretation time: 16:33 <GALLO Suárez - Last Filed: 10/20/20 23:29> Interpretation: Normal sinus rhythm with a ventricular rate of 77 with a normal MS interval normal QRS duration normal QT/QTC interval. No acute ischemic changes are noted. Similar compared to prior EKG 08/17/2020. <GALLO Suárez - Last Filed: 10/20/20 23:29> Critical Care Time Critical Care Time Critical Care Time: Yes <GALLO Suárez - Last Filed: 10/20/20:29> Total Critical Care Time: 60 <GALLO Suárez - Last Filed: 10/20/20:29> Attestation: I personally attest to this time spent taking care of the patient <GALLO Suárez Last Filed: 10/20/20:29> Discharge Plan Discharge Clinical Impression: Muscle spasm, Acute hyperkalemia <GALLO Suárez - Last Filed: 10/20/20 23:29> Patient Disposition: Home, Self-Care <GALLO Suárez Last Filed: 10/20/20:29> Instructions: Hyperkalemia (ED), Muscle Spasm (ED) <GALLO Suárez - Last Filed: 10/20/20 23:29> Additional Instructions: You have pending lab results for hepatitis a/B/C if any are positive you will be contacted. At this time your labs have improved and your cardiac enzymes are negative therefore this is not a myocardial infarction/heart attack. You are safe to go home at this time most likely are suffering from a muscle spasm. Return if any new or worsening symptoms follow-up with your primary care provider and continue any previously prescribed medications as previously prescribed. <GALLO Suárez - Last Filed: 10/20/20 23:29> Prescriptions: New cyclobenzaprine 10 mg tablet 10 mg PO Q8H Qty: 10 RF: 0 ibuprofen 800 mg tablet 800 mg PO Q8H PRN (Reason: pain) Qty: 14 RF: 0 acetaminophen [Tylenol Extra Strength] 500 mg tablet 1,000 mg PO QID PRN (Reason: fever or pain) Qty: 14 RF: 0 lidocaine HCl [Aspercreme (lidocaine HCl)] 4 % cream 1 appl topical BID PRN (Reason: pain) Qty: 120 RF: 0 <GALLO Suárez Last Filed: 10/20/20 23:29> Referrals: Mavis Díaz MD [Primary Care Provider] - 2 days <GALLO Suárez - Last Filed: 10/20/20 23:29> Stand Alone Forms: Work/School Release <GALLO Suárez - Last Filed: 10/20/20 23:29> Interventions: ED Discharge Assessment Last Done: 10/20/20 23:39 <GALLO Suárez - Last Filed: 10/20/20 23:29> Discharge Date/Time: 10/21/20 00:00 <GALLO Suárez - Last Filed: 10/20/20 23:29> Print Language: Divehi <GALLO Suárez - Last Filed: 10/20/20 23:29>
[2020-10-20 20:24] LABS: INTERNATIONAL NORM RATIO 1.1 (0.9-1.1); Prothrombin Time 12.9 SEC (10.8-13.0)
[2020-10-20 20:28] VITALS: BP 133/79; PULSE 80; RESP 18; O2SAT 100
--- NOTE | 2020-10-20 20:33 | ECG_ITS ---
Test Reason : REPEAT Blood Pressure : / mmHG Vent. Rate : 077 BPM Atrial Rate : 077 BPM P-R Int : 136 ms QRS Dur : 082 ms QT Int : 412 ms P-R-T Axes : 070 066 063 degrees QTc Int : 466 ms Normal sinus rhythm Normal ECG When compared with ECG of 20-OCT-2020 16:33, Non-specific change in ST segment in Inferior leads Nonspecific T wave abnormality no longer evident in Inferior leads Referred By: Generic ED Physician Electronically Signed By:ERA ANGELES MD
[2020-10-20 20:37] LABS: D Dimer < 200 NG/ML
[2020-10-20 20:43] LABS: Appearance Urine CLEAR; Color Urine YELLOW; Glucose Urine UA NEG (NEG); Leukocyte Esterase Urine NEG (NEG); Nitrite Urine NEG (NEG); PH 7.5 (5.0-8.0); Specific Gravity - Urine 1.015 (1.005-1.025); Urine Blood NEG (NEG); Urine Ketones NEG (NEG); Urine Protein NEG (NEG-TRACE)
[2020-10-20 20:51] LABS: Amphetamine Screen Urine Not Detected (Not Detect); Barbiturates, Urine Not Detected (Not Detect); Benzodiazepines Screen Urine POSITIVE (Not Detect); Cannabinoid Screen Urine Not Detected (Not Detect); Cocaine Screen Urine Not Detected (Not Detect); Opiate Screen Urine Not Detected (Not Detect); Phencyclidine Screen Urine Not Detected (Not Detect)
[2020-10-20] MEDS: Sodium Polystyrene Sulfon/Sorb 15 GM/60 ML ORAL.SUSP 45 GM PO (21:38)
[2020-10-20 21:40] VITALS: BP 135/86; PULSE 90; RESP 18; O2SAT 97
[2020-10-20 22:39] LABS: Anion Gap 12 (12-20); Blood Urea Nitrogen 16 mg/dL (9-16); Calcium 9.9 mg/dL (8.4-10.2); Carbon Dioxide 29 mmol/L (22-29); Chloride 99 mmol/L (96-108); Creatinine Clr Calc Pharmacy 95.9; Estimated Glomerular Filt Rate > 60; Glucose Random 88 mg/dL (60-115); Potassium 4.9 mmol/L (3.3-5.1); Sodium 135 mmol/L (135-145)
[2020-10-23 04:21] LABS: HBS Num1 7.87 mIU/mL (0-7.99); HBc Num1 0.06 S/CO (0.00-0.79); Hepatitis B Core Antibody Nonreactive (Nonreactive); Hepatitis B Surface Antigen Negative (Negative); ~HepC Num1 0.14 S/CO (0.00-0.79); ~Hepatitis B Surface Antibody NONREACTIVE (Nonreactive); ~Hepatitis C Antibody Nonreactive (Nonreactive)
[2020-10-24 04:33] LABS: Hepatitis A Antibody IgM 0.18 Index (0-0.79); ~Hepatitis A Antibody IgM Nonreactive (Nonreactive)
== END 2020-10-21 | disposition home or self-care (01) ==
PROVIDERS: Physician Assistant; Physician Assistant Medical; Emergency Provider Emergency Medicine; PCP Family Medicine
DX: R06.00 Dyspnea, unspecified (principal); R07.9 Chest pain, unspecified; M62.838 Other muscle spasm; E87.5 Hyperkalemia; Z20.822 Contact with and (suspected) exposure to COVID-19; Z79.899 Other long term (current) drug therapy
CPT/HCPCS: 36415; 71045; 80048; 80076; 80307; 80320; 81003; 83735; 83880; 84484; 85025; 85379; 85610; 86704; 86706; 86709; 86803; 87340; 87635; 93005; 99285

== ENCOUNTER 2021-09-17 08:48 | Emergency (ER) | payer MEDICAID, SELFPAY ==
--- NOTE | ~2021-09-17 | XR_ITS ---
EXAMINATION: XR WRIST, LEFT CLINICAL INFORMATION: Fall. COMPARISON: None TECHNIQUE: PA, lateral, and oblique views of the left wrist. FINDINGS: The bones and soft tissues are normal. No fracture. Alignment is anatomic with normal joint spaces. No erosions or abnormal soft tissue calcifications. XR/XR wrist LT 2V IMPRESSION: Unremarkable left wrist.
[2021-09-17 08:55] VITALS: BP 158/73; PULSE 81; RESP 20; TEMP 36.4; O2SAT 97; BMI 25.7
--- NOTE | 2021-09-17 09:17 | ED_ITS ---
HPI - Back Pain/Injury General Chief Complaint: Back Pain/Injury Stated Complaint: fall Time Seen by Provider: 09/17/21 09:17 Source: patient Mode of arrival: ambulatory Limitations: no limitations History of Present Illness HPI Narrative: Patient is a 51 year old male presenting to the emergency department today with low back pain and left wrist pain after a fall. Patient states that he slipped and fell yesterday at [place] shop. Patient states that as he fell, he twisted his low back and landed on his left wrist. Patient denies hitting his head with the incident. Patient denies any loss of consciousness with the incident. Patient denies any dizziness, lightheadedness, abdominal pain, nausea, vomiting, fever, chills, blurry vision, double vision, loss of vision, chest pain, difficulty breathing, shortness of breath, night sweats, pain with urination, increased urinary frequency, increased urinary urgency, blood in his urine or stool, syncope or a near syncopal episode, bowel incontinence, bladder incontinence, bowel retention, bladder retention, or any other complaints at this time. MD elicited complaint: back pain Onset (ago): day(s) Timing: intermittent Severity: mild Pain scale (0-10): 3 Quality: dull Location: lumbar spine Radiation: none Exacerbating factors: none Relieving factors: none Context: fall Associated symptoms: other (left wrist pain) Related Data Previous Rx's Medication Instructions Recorded acetaminophen 500 mg tablet 1,000 mg PO QID PRN #14 tab 10/20/20 (Tylenol Extra Strength) cyclobenzaprine 10 mg tablet 10 mg PO Q8H #10 tab 10/20/20 ibuprofen 800 mg tablet 800 mg PO Q8H PRN #14 tab 10/20/20 lidocaine HCl 4 % topical cream 1 appl TOPICAL BID PRN #120 g 10/20/20 (Aspercreme (lidocaine HCl)) Allergies Allergy/AdvReac Type Severity Reaction Status Date / Time No Known Allergies Allergy Verified 10/20/20 18:22 Review of Systems Constitutional: Constitutional: Reports no additional constitutional complaints, Denies chills, Denies fever(s) and Denies night sweats Eyes: Eyes: Reports no additional eye complaints, Denies blurry vision, Denies change in vision, Denies diplopia, Denies eye discharge, Denies loss of vision and Denies eye pain ENT: Denies dizziness Cardiovascular: Cardiovascular: Reports no additional cardiovascular complaints, Denies chest pain, Denies lightheadedness, Denies Loss of Consc iousness and Denies dyspnea Respiratory: Respiratory: Reports no additional respiratory complaints and Denies dyspnea Gastrointestinal: Gastrointestinal: Reports no additional gastrointestinal complaints, Denies abdominal pain, Denies melena, Denies hematochezia, Denies change in bowel habits and Denies change in stool character Genitourinary: Genitourinary: Reports no additional male genitourinary complaints, Denies hematuria, Denies oliguria, Denies difficulty urinating, Denies dysuria, Denies urinary frequency, Denies urinary hesitancy, Denies urinary incontinence and Denies urinary urgency Musculoskeletal: Musculoskeletal: Reports no additional musculoskeletal complaints, Reports back pain, Denies numbness and Denies tingling Comments: left wrist pain Neurologic: Denies dizziness, Denies loss of vision, Denies numbness and Denies tingling Psychiatric: Psychiatric: Reports no additional psychiatric complaints Endocrine: Endocrine: Reports no additional endocrine complaints Hematologic/Lymphatic: Hematologic/Lymphatic: Reports no additional hematologic/lymphatic complaints Allergic/Immunologic: Allergic/Immunologic: Reports no additional allergic/immunologic complaints PMFSH Past Medical History Attestation statement: The following information was validated with the patient. Source: old records reviewed Medical History Anxiety Depression PTSD (post-traumatic stress disorder) Social History Social History Alcohol intake: never Physical Exam Vital Signs: Vital Signs: Last Vital Signs Temp 97.5 F 09/17/21 08:55 Pulse 81 09/17/21 08:55 Resp 18 09/17/21 10:44 BP 158/73 H 09/17/21 08:55 Pulse Ox 97 09/17/21 08:55 BMI result Body Mass Index 25.7 Const: General: cooperative, no acute distress, alert and awake Nutritional Appearance: well nourished Orientation/consciousness: patient oriented x3 Limitations: no limitations HEENT: Head: Yes normal to inspection and Yes atraumatic Ears: hearing grossly normal bilaterally and external ears normal General nose exam: Normal external nose present, no nasal discharge noted and no epistaxis Face and sinus: Yes normal facial exam, No abrasion and No laceration Mouth: Normal oral and palatal mucosa present, no drooling and no muffled voice Eyes: General: appearance normal, both eyes and all related structures Periorbital: periorbital findings normal Eyelids: Yes eyelids normal Conjunctivae: conjunctivae normal Pupils: Equal, round and reactive pupils present EOM: EOMs intact bilaterally Neck: Neck: Yes normal visual inspection, Yes full ROM and Yes no lymphadenopathy Chest: Chest palpation & inspection: normal inspection of the chest Resp: Effort & Inspection: normal respiratory effort and able to speak in complete sentences Auscultation: clear to auscultation bilaterally Cardio: Rate: regular rate Rhythm: regular rhythm GI: Inspection: Yes normal to inspection : General: Yes no CVA tenderness Back/Spine/Pelvis: Back: no CVA tenderness Cervical Spine: normal cervical lordosis Thoracic/Lumbar Spine: thoracic and lumbar spine normal to inspection and thoraco-lumbar ROM normal Pelvis: no pain with anterior- posterior compression Neuro: General: patient oriented x3 and moves all extremities Cranial nerves: Yes Equal, round and reactive pupils present Cognition (Neuro): normal cognition Motor exam (neuro): 5/5 motor strength present throughout Sensory Exam: Normal double simultaneous stimulation for sensation Coordination: [id number] test normal Extrem: General: Yes normal to inspection, Yes full ROM and Yes capillary refill normal Psych: Appearance: grossly normal Mental Status: mental status grossly normal Affect: normal affect Attitude: cooperative Thought process: Normal thought process present Thought content: Normal thought content present Insight: Good insight present (Psych) MDM - Back Pain/Injury MDM Narrative Medical decision making narrative: Patient is a 51 year old male presenting to the emergency department today with left wrist pain and back pain after a slip and fall. Patient's physical exam was unremarkable, including a normal back and extremity exam. Patient's ROM, circulation, strength, and sensation were intact to all extremities. Patient's left wrist x-ray showed no acute process. I explained my physical exam findings as well as all test results to the patient. I answered all questions asked by the patient. Patient received IM Toradol and PO Flexeril which he stated helped his symptoms significantly. I stressed the importance of the patient taking his medication as prescribed. I stressed the importance of the patient following up with his primary care provider. I stressed the importance of the patient returning to the emergency department immediately if his symptoms were to worsen or if he were to develop any dizziness, shortness of breath, difficulty breathing, chest pain, blurry vision, loss of vision, nausea, vomiting, abdominal pain, fever, chills, back pain, or any other complaints. Patient verbalized agreement and understanding with this treatment plan and discharge. After the patient was discharged, he became very irate about not receiving a prescription for pain medication. I explained to the patient that his injuries do not warrant prescription pain medication, especially narcotics. Patient continued to be verbally agressive and stormed out of the facility. Differential Diagnosis Differential diagnosis: Unlikely lumbar radiculopathy (back pain, slip and fall, left wrist pain) Medical Records Attestation: I reviewed the patient's medical records. Imaging Data Wrist x-ray (left): Attestation: I personally reviewed and interpreted this imaging study as follows: My impression: No acute process. Radiologist's impression: EXAMINATION: XR WRIST, LEFT CLINICAL INFORMATION: Fall.? COMPARISON: None? TECHNIQUE: PA, lateral, and oblique views of the left wrist. FINDINGS: The bones and soft tissues are normal. No fracture. Alignment is anatomic with normal joint spaces. No erosions or abnormal soft tissue calcifications.? XR/XR wrist LT 2V IMPRESSION: Unremarkable left wrist. Dictated By: Ryan Seaman MD Signed By: Electronically signed by Ryan Seaman MD 09/17/21 1014 Discharge Plan Discharge Clinical Impression: Back pain, Acute wrist pain Patient Disposition: Home, Self-Care Instructions: Wrist Injury (ED), Back Pain (ED) Additional Instructions: Follow up with your primary care provider. Return to the emergency department immediately if your symptoms worsen or if you develop any dizziness, shortness of breath, difficulty breathing, chest pain, blurry vision, loss of vision, nausea, vomiting, abdominal pain, fever, chills, back pain, or any other complaints. Prescriptions: No Action cyclobenzaprine 10 mg tablet 10 mg PO Q8H Qty: 10 0RF ibuprofen 800 mg tablet 800 mg PO Q8H PRN (Reason: pain) Qty: 14 0RF acetaminophen [Tylenol Extra Strength] 500 mg tablet 1,000 mg PO QID PRN (Reason: fever or pain) Qty: 14 0RF lidocaine HCl [Aspercreme (lidocaine HCl)] 4 % cream 1 appl topical BID PRN (Reason: pain) Qty: 120 0RF Referrals: Quintin Coe MD [Physician] - (Follow up with a general surgeon for inguinal hernia repair consultation. ) Interventions: ED Discharge Assessment Last Done: 09/17/21 10:44 Discharge Date/Time: 09/17/21 10:45 Print Language: French
[2021-09-17] MEDS: Ketorolac Tromethamine 30 MG/ML VIAL IM (10:37)
[2021-09-17] MEDS: Cyclobenzaprine HCl 10 MG TABLET PO (10:37)
[2021-09-17 10:44] VITALS: RESP 18
== END 2021-09-17 10:45 | disposition home or self-care (01) ==
PROVIDERS: Emergency Provider Emergency Medicine
DX: M54.50 Low back pain, unspecified (principal); M25.532 Pain in left wrist
CPT/HCPCS: 73100; 96372; 99284; J1885

== ENCOUNTER 2021-09-21 09:26 | Emergency (ER) | payer MEDICAID, SELFPAY ==
--- NOTE | ~2021-09-21 | XR_ITS ---
EXAMINATION: XR SACRUM AND COCCYX CLINICAL INFORMATION: Fall COMPARISON: None TECHNIQUE: 2 views of the sacrum and 2 views of the coccyx were obtained. FINDINGS: No evidence for fracture XR/XR sacrum coccyx min 2V IMPRESSION: No fracture seen sacrum coccyx
--- NOTE | ~2021-09-21 | CT_ITS ---
EXAMINATION: CT LUMBAR SPINE WITHOUT CONTRAST CLINICAL INFORMATION: Fall, trauma. Low back pain. Right lower extremity numbness. COMPARISON: CT abdomen and pelvis with IV contrast 12/11/2019. CT cervical spine noncontrast 09/21/2021. TECHNIQUE: Multidetector volumetric CT imaging of the lumbar spine is performed without contrast in the axial plane. Additional 2D reformatted coronal and sagittal images are generated on the CT workstation and uploaded to PACS. This CT examination was performed using dose optimization techniques as appropriate, variously including the following: *Automated exposure control *Adjustment of mA and/or kV according to patient size (this includes techniques or standardized protocols for targeted exams where dose is matched to indication/reason for exam; i.e. extremities or head) *Use of iterative reconstruction technique DLP: 390 mGy-cm FINDINGS: The lumbar vertebral bodies are normal in height and there is no vertebral compression, visible fracture, destructive process, or paraspinal soft tissue swelling. No spondylolysis. No perched facet. There is mild straightening of the lumbar lordosis with mild dextrocurvature similar to the CT abdomen and pelvis 12/11/2019. There is no interval disc narrowing. There is mild vertebral spurring anterior and lateral L4-L5 again seen. Small bone island again noted left sacrum. The visualized abdominal aorta is normal in caliber. The psoas muscles appears symmetric. There is no retroperitoneal hematoma. The kidney show no hydronephrosis. Adrenal glands unremarkable. CT/CT lumbar spine wo con IMPRESSION: No acute bony abnormality. No paraspinal soft tissue swelling or hematoma.
--- NOTE | ~2021-09-21 | XR_ITS ---
EXAMINATION: XR HAND, LEFT CLINICAL INFORMATION: Left hand pain and swelling COMPARISON: Left wrist 09/17/2021 TECHNIQUE: PA, lateral, and oblique views of the left hand. FINDINGS: The bones and soft tissues are normal. No fracture. Alignment is anatomic. Joint spaces are maintained. No erosions or soft tissue calcifications. XR/XR hand LT 2V IMPRESSION: Normal left hand.
--- NOTE | ~2021-09-21 | CT_ITS ---
EXAMINATION: CT CERVICAL SPINE WITHOUT CONTRAST CLINICAL INFORMATION: Fall/trauma. Right upper extremity numbness/tingling. COMPARISON: None TECHNIQUE: Multidetector volumetric CT imaging of the cervical spine is performed without contrast in the axial plane. Additional 2D reformatted coronal and sagittal images are generated on the CT workstation and uploaded to PACS. This CT examination was performed using dose optimization techniques as appropriate, variously including the following: *Automated exposure control *Adjustment of mA and/or kV according to patient size (this includes techniques or standardized protocols for targeted exams where dose is matched to indication/reason for exam; i.e. extremities or head) *Use of iterative reconstruction technique DLP: 560 mGy-cm FINDINGS: There is no vertebral compression fracture, fracture line, spondylolisthesis, or prevertebral soft tissue swelling. The craniocervical junction appears normal. The odontoid appears intact. There is normal cervical lordosis. There are degenerative disc changes C5-C6 and C6-C7 with disc narrowing and vertebral spurring. There is mild foraminal spurring, greatest right C5-C6. No perched facet. No paraspinal soft tissue swelling. The lung apices are clear. No apical pneumothorax or subcutaneous emphysema. CT/CT cervical spine wo con IMPRESSION: 1. No acute bony abnormality or prevertebral soft tissue swelling. 2. Degenerative disc changes and vertebral spurring C5-C6 and C6-C7.
[2021-09-21 09:29] VITALS: BP 155/80; PULSE 100; RESP 18; TEMP 36.6; O2SAT 99; BMI 26.3
--- NOTE | 2021-09-21 10:20 | ED_ITS ---
HPI - General Adult General Chief complaint: Back Pain/Injury Stated complaint: back pain all over L arm Time Seen by Provider: 09/21/21 09:54 Source: patient Mode of arrival: ambulatory History of Present Illness HPI narrative: 51-year-old male with a past medical history of anxiety, depression, PTSD, presenting to the ED complaining of worsening right sided neck, low back and left wrist pain s/p mechanical fall at [employer] on 09/17. Reports tingling/numbness to RLE and LUE/hand. Patient was evaluated in our ED after incident had left wrist x-rays that were unremarkable. Denies new or recent injury/trauma, weakness, urinary incontinence, urinary retention, fever Onset (ago): day(s) Related Data Previous Rx's Medication Instructions Recorded acetaminophen 500 mg tablet 1,000 mg PO QID PRN #14 tab 10/20/20 (Tylenol Extra Strength) cyclobenzaprine 10 mg tablet 10 mg PO Q8H #10 tab 10/20/20 ibuprofen 800 mg tablet 800 mg PO Q8H PRN #14 tab 10/20/20 lidocaine HCl 4 % topical cream 1 appl TOPICAL BID PRN #120 g 10/20/20 (Aspercreme (lidocaine HCl)) acetaminophen 500 mg tablet 500 mg PO Q6H PRN #10 tab 09/21/21 (Tylenol Extra Strength) cyclobenzaprine 5 mg tablet 5 mg PO Q8H PRN 5 Days #14 tab 09/21/21 lidocaine 5 % topical patch 1 patch TOPICAL DAILY PRN #30 ea 09/21/21 (Lidoderm) MDD remove after 12 hours naproxen 500 mg tablet 500 mg PO BID PRN 10 Days #10 tab 09/21/21 Allergies Allergy/AdvReac Type Severity Reaction Status Date / Time No Known Allergies Allergy Verified 10/20/20 18:22 Review of Systems Review of Systems: Constitutional: No Fever, No Chills, No Fatigue, No Malaise ENT/Mouth: No Ear Pain, No Nasal Congestion, No sore throat Eyes: No Eye Pain, No Swelling, No Redness Cardiovascular: No Chest Pain, No SOB, No Edema Respiratory: No Cough, No Sputum, No Dyspnea Gastrointestinal: No Nausea, No Vomiting, No Diarrhea, No Constipation, No Abdominal pain Genitourinary: No Dysuria, No Urinary Frequency, No Hematuria, No Urinary Incontinence/retention No Urgency, No Flank Pain Musculoskeletal: + joint pain, No Myalgias, + Joint Swelling Skin: No Skin Lesions, No rash Neuro: No Weakness, + Numbness, + Paresthesias, No Loss of Consciousness, No Dizziness, No Headache Yes all other systems are reviewed and are negative [facility] Past Medical History Attestation statement: The following information was validated with the patient. Medical History Anxiety Depression PTSD (post-traumatic stress disorder) Social History Social History Alcohol intake: never Advance Directives: No Advance Directives Information Provided: No Physical Exam ED Vital Signs: Vital Signs - 24 hr 09/21/21 09:29 Temperature 98 F Pulse Rate 100 Respiratory Rate 18 Blood Pressure 155/80 H Pulse Oximetry 99 BMI result Body Mass Index 26.3 Const General: cooperative, healthy appearing and no acute distress Orientation/consciousness: patient oriented x3 Limitations: no limitations HENMT Head: Yes normal to inspection and Yes atraumatic Ears: hearing grossly normal bilaterally General nose exam: Normal external nose present Face and sinus: Yes normal facial exam Eyes General: appearance normal, both eyes and all related structures EOM: EOMs intact bilaterally Neck Other: No midline cervical spinous tenderness/step-off or deformity. +Right-sided paraspinal tenderness Neck: Yes normal visual inspection, Yes full ROM and Yes no meningeal signs Resp Effort & Inspection: normal respiratory effort and no respiratory distress Cardio Rate: regular rate Heart sounds: S1 normal heart sound present and S2 normal heart sound present Peripheral pulses: radial pulses present and ulnar radial pulses present GI Inspection: Yes normal to inspection Palpation (GI): Soft to palpation, nontender, no guarding and not rigid General: Yes no CVA tenderness Back/Spine/Pelvis Other: No midline thoracic/lumbar spinous tenderness/step-off or deformity. Right- sided lumbar paraspinal tenderness. And right buttock tenderness. Back: no CVA tenderness Thoracic/Lumbar Spine: thoracic and lumbar spine normal to inspection Skin Rashes: no rashes Wounds: no wounds Neuro Other: Ambulating with a slow steady gait. No appreciable weakness. Strength intact throughout. +reported decreased sensation to RLE and LUE. No saddle anesthesia. Rectal tone intact. General: patient oriented x3, tone normal, moves all extremities, no meningeal signs and no focal motor deficits Gait exam (Neuro): Normal gait present Motor exam (neuro): 5/5 motor strength present throughout Extrem Other: Left hand with mild swelling, diffusely tender. Left wrist mildly tender with mild snuffbox tenderness. Wrist ROM intact. Full hand fist/ flexion & thumb to pinky opposition decreased secondary to pain/swelling. Radial and ulnar pulses intact. Reported decreased sensation to LUE Course Course Course Narrative: XR hand LT 2V IMPRESSION: Normal left hand. XR sacrum coccyx min 2V IMPRESSION: No fracture seen sacrum coccyx CT lumbar spine wo con IMPRESSION: No acute bony abnormality. No paraspinal soft tissue swelling or hematoma. CT cervical spine wo con IMPRESSION: 1.? No acute bony abnormality or prevertebral soft tissue swelling. 2.? Degenerative disc changes and vertebral spurring C5-C6 and C6-C7. >> results discussed with patient including worrisome signs and symptoms and strict return precautions. Patient placed in thumb spica due to snuffbox tenderness, recommended close follow-up with PCP and Orthopedics. He verbalized understanding feel safe for discharge home at this time. Patient reports prescriptions were never sent to pharmacy from prior visit from 09/17, I called [facility] who verified that they never received prescriptions from a that date, but they did received today's prescriptions I sent in for Flexeril, naproxen, Tylenol, and Lidoderm Medical Decision Making MDM Narrative Medical decision making narrative: 51-year-old male with a past medical history of anxiety, depression, PTSD, presenting to the ED complaining of worsening right sided neck, low back and left wrist pain s/p mechanical fall at [employer] on 09/17. Reports tingling/numbness to RLE and LUE/hand. On exam vital signs stable, NAD, no midline spinous tenderness throughout, no focal neuro deficits, reported decreased/different sensation to light touch to RLE and LUE, rectal tone intact/no saddle anesthesia. Concern for occult fracture vs herniated disc vs MSK pain/spasming or sciatica. Concern for wrist/hand strain. Wrist x-rays from 09/17 WNL vs ? Scaphoid fracture Plan: Hand/sacrum and coccyx x-ray, lumbar/cervical CT, pain management Medical Records Medical records reviewed: Yes I reviewed the patient's medical records. Lab Data Lab results reviewed: Yes I reviewed the patient's lab results. Discharge Plan Discharge Clinical Impression: Back pain with radiation, Left wrist pain, Paresthesia Patient Disposition: Home, Self-Care Instructions: Wrist Injury (ED), Paresthesia (ED), Back Pain (ED) Additional Instructions: Your neck CT shows degenerative disc changes and spurring at C5-C6 and C6-C7, no fracture The CT of your back did not show any acute findings. your hand and sacrum/coccyx x-ray were unremarkable. Due to the tenderness in your hand wear brace at all times until you see the cheese specialist, you may only take off to shower. It is possible you have an unseen fracture in your hand, it is very important to see the specialist Continue taking previously prescribed medications. Ice. Elevate. Flexeril is a muscle relaxer, take at night as it makes you drowsy, do not drive, drink alcohol, or operate machinery while taking it Naproxen as an anti-inflammatory / pain medication, take with food Lidoderm patches are numbing patches, apply to painful area In addition take Tylenol at home If symptoms persist or worsen, pain becomes unbearable, you developed urinary retention or incontinence, or weakness return to the ED Prescriptions: New cyclobenzaprine 5 mg tablet 5 mg PO Q8H PRN (Reason: pain (scale score 7-10)) 5 Days Qty: 14 0RF acetaminophen [Tylenol Extra Strength] 500 mg tablet 500 mg PO Q6H PRN (Reason: pain or fever) Qty: 10 0RF lidocaine [Lidoderm] 5 % adhesive patch,medicated 1 patch topical DAILY MDD remove after 12 hours PRN (Reason: pain) Qty: 30 0RF Rx Instructions: leave on most painful area for up to 12 hrs naproxen 500 mg tablet 500 mg PO BID PRN (Reason: pain) 10 Days Qty: 10 0RF No Action cyclobenzaprine 10 mg tablet 10 mg PO Q8H Qty: 10 0RF ibuprofen 800 mg tablet 800 mg PO Q8H PRN (Reason: pain) Qty: 14 0RF acetaminophen [Tylenol Extra Strength] 500 mg tablet 1,000 mg PO QID PRN (Reason: fever or pain) Qty: 14 0RF lidocaine HCl [Aspercreme (lidocaine HCl)] 4 % cream 1 appl topical BID PRN (Reason: pain) Qty: 120 0RF Referrals: Mavis Díaz MD [Primary Care Provider] - 3 days Jasmine Love PA-C [Physician Filter Press Tender] - 5 days
[2021-09-21] MEDS: Cyclobenzaprine HCl 10 MG TABLET PO (10:41)
[2021-09-21] MEDS: Ketorolac Tromethamine 30 MG/ML VIAL IM (10:42)
== END 2021-09-21 12:50 | disposition home or self-care (01) ==
PROVIDERS: Emergency Provider Emergency Medicine; PCP Family Medicine
DX: M54.50 Low back pain, unspecified (principal); M25.532 Pain in left wrist; R20.2 Paresthesia of skin; M54.2 Cervicalgia; M79.642 Pain in left hand; Z79.899 Other long term (current) drug therapy
CPT/HCPCS: 72125; 72131; 72220; 73120; 96372; 99284; J1885

== ENCOUNTER 2021-10-02 08:35 | Outpatient (REF) | payer MEDICAID, SELFPAY ==
--- NOTE | ~2021-10-02 | XR_ITS ---
EXAMINATIONS: XR wrist LT w scaphoid CLINICAL INFORMATION: Reason for Exam M25.532 - Pain in left wrist COMPARISON: None VIEWS: Frontal lateral and oblique FINDINGS: There is no evidence of acute fracture or dislocation. The distal radius is intact. The radiocarpal, intercarpal and carpal/metacarpal joints are normal. Ulnar styloid is intact. The scapholunate joint is normal. The lunate is properly positioned. The [id number] access is normal. The scaphoid bone is a properly articulating. XR/XR wrist LT w scaphoid IMPRESSION: No significant osseous changes to explain patient's pain symptoms.
== END 2021-10-02 08:36 | disposition home or self-care (01) ==
LOC: HO.HOSX 08:35
PROVIDERS: Visit Provider Orthopaedic Surgery
DX: M25.532 Pain in left wrist (principal); R20.0 Anesthesia of skin; R20.2 Paresthesia of skin; S52.515A Nondisplaced fracture of left radial styloid process, initial encounter for closed fracture; W01.0XXA Fall on same level from slipping, tripping and stumbling without subsequent striking against object, initial encounter; Y93.01 Activity, walking, marching and hiking; Y92.512 Supermarket, store or market as the place of occurrence of the external cause; Y99.8 Other external cause status; F41.8 Other specified anxiety disorders; F43.10 Post-traumatic stress disorder, unspecified
CPT/HCPCS: 73110; 99202

== ENCOUNTER 2021-10-15 11:56 | Emergency (ER) | payer MEDICAID, SELFPAY ==
[2021-10-15 12:17] VITALS: BP 171/79; PULSE 84; RESP 20; TEMP 36.3; O2SAT 98; BMI 25.1
[2021-10-15] MEDS: predniSONE 20 MG TABLET 60 MG PO (16:09)
[2021-10-15] MEDS: oxyCODONE HCl Immed Release 5 MG TABLET PO (16:09)
--- NOTE | 2021-10-15 16:44 | ED.GENADULT ---
HPI - General Adult General Chief complaint: Neck Pain/Injury Stated complaint: Neck/Back pain Time Seen by Provider: 10/15/21 14:58 Source: patient Mode of arrival: ambulatory Limitations: no limitations History of Present Illness HPI narrative: 51 yold male with history of Cervical and Lumbar arthiritis presents to the ED for neck and back pain exacerbation. patient denies any recent trauma the past two weeks. Patient denies any urinary/bowel incontinence, abdominal pain, headache, photophobia, fever, chills, dysuria, hematuria, flank pain, weakness, dizziness, vomitting, paralysis of extremities or any other recent trauma. Related Data Home Medications Medication Instructions Recorded Confirmed albuterol sulfate 90 mcg/actuation 2 puff PO QID PRN 10/02/21 aerosol inhaler (ProAir HFA) aripiprazole 10 mg tablet 10 mg PO QAM 10/02/21 clonazepam 1 mg tablet 0 mg PO 10/02/21 fluoxetine 40 mg capsule 80 mg PO DAILY 10/02/21 mirtazapine 30 mg tablet 30 mg PO BEDTIME 10/02/21 prazosin 2 mg capsule 4 mg PO BEDTIME 10/02/21 Previous Rx's Medication Instructions Recorded acetaminophen 500 mg tablet 1,000 mg PO QID PRN #14 tab 10/20/20 (Tylenol Extra Strength) lidocaine HCl 4 % topical cream 1 appl TOPICAL BID PRN #120 g 10/20/20 (Aspercreme (lidocaine HCl)) acetaminophen 500 mg tablet 500 mg PO Q6H PRN #10 tab 09/21/21 (Tylenol Extra Strength) cyclobenzaprine 5 mg tablet 5 mg PO Q8H PRN 5 Days #14 tab 09/21/21 lidocaine 5 % topical patch 1 patch TOPICAL DAILY PRN #30 ea 09/21/21 (Lidoderm) MDD remove after 12 hours naproxen 500 mg tablet 500 mg PO BID PRN 10 Days #10 tab 09/21/21 ibuprofen 600 mg tablet 600 mg PO TID PRN #30 tab 10/02/21 oxycodone 5 mg tablet 5 mg PO Q6H PRN #10 tab 10/15/21 prednisone 20 mg tablet 40 mg PO DAILY 5 Days #10 tab 10/15/21 Allergies Allergy/AdvReac Type Severity Reaction Status Date / Time No Known Allergies Allergy Verified 10/02/21 10:26 Review of Systems Review of Systems: neck/back pain Yes all other systems are reviewed and are negative [facility] Past Medical History Medical History Anxiety Depression PTSD (post-traumatic stress disorder) Social History Social History Alcohol intake: never Advance Directives: No Advance Directives Information Provided: No Current occupational status: unemployed Current occupation: rt hand Physical Exam ED Vital Signs: Vital Signs - 24 hr 10/15/21 12:17 10/15/21 17:16 Temperature 97.3 F Pulse Rate 84 69 Respiratory Rate 20 16 Blood Pressure 171/79 H 144/89 H Pulse Oximetry 98 99 BMI result Body Mass Index 25.1 Const General: cooperative, healthy appearing, comfortable, no acute distress, well developed, alert, awake and Physically active Orientation/consciousness: patient oriented x3 HENMT Head: Yes normal to inspection, Yes No palpable skull fracture present, Yes normocephalic, Yes atraumatic and No abrasion Eyes General: appearance normal, both eyes and all related structures Neck Neck: Yes normal visual inspection, Yes full ROM, Yes no lymphadenopathy, Yes no meningeal signs, Yes trachea midline, Yes supple, No anterior neck swelling and Yes tender (posterior) Chest Chest palpation & inspection: normal inspection of the chest Resp Effort & Inspection: normal respiratory effort and able to speak in complete sentences Auscultation: clear to auscultation bilaterally Cardio Jugular venous distension: no JVD Heart sounds: S1 normal heart sound present and S2 normal heart sound present GI Inspection: Yes normal to inspection and No abdominal wall ecchymosis Palpation (GI): Soft to palpation, not firm, nontender, no guarding and not rigid General: No CVA tenderness and Yes no CVA tenderness Back/Spine/Pelvis Back: no CVA tenderness, No CVA tenderness and back tenderness (mild lumbar) Skin General skin exam: no rashes or lesions noted and elasticity normal Neuro General: patient oriented x3, gait normal, no meningeal signs and CN's II-XI intact bilaterally Cranial nerves: Yes CN's II-XII intact bilaterally Extrem General: Yes normal to inspection and Yes full ROM Psych Appearance: grossly normal, well kempt and not disheveled Course Course Course Narrative: No need for new imaging Reevaluation(s) Reevaluation #1: Patient had Cervical Spine CT and Lumbar spine CT on in September 21 which showed cervical and lumbar radiculopathy. Patient is not in any distress. Patient is well-appearing. Discharge Plan Discharge Clinical Impression: Cervical radiculopathy, Chronic lumbar radiculopathy Patient Disposition: Home, Self-Care Instructions: Lumbar Radiculopathy (ED), Cervical Radiculopathy (ED) Additional Instructions: Return to the ED for fever, chills, nausea, abdominal pain, flank pain, dysuria, hematuria, urinary/bowel incontinence, chest pain, headache, neck stiffness, paralysis of extremities, or any other concerning symptoms. You should call [facility], [phone]. [id number], [place] [address]. Motrin can be taken for pain also. Prescriptions: New oxycodone 5 mg tablet 5 mg PO Q6H PRN (Reason: pain) Qty: 10 0RF prednisone 20 mg tablet 40 mg PO DAILY 5 Days Qty: 10 0RF No Action acetaminophen [Tylenol Extra Strength] 500 mg tablet 1,000 mg PO QID PRN (Reason: fever or pain) Qty: 14 0RF lidocaine HCl [Aspercreme (lidocaine HCl)] 4 % cream 1 appl topical BID PRN (Reason: pain) Qty: 120 0RF cyclobenzaprine 5 mg tablet 5 mg PO Q8H PRN (Reason: pain (scale score 7-10)) 5 Days Qty: 14 0RF acetaminophen [Tylenol Extra Strength] 500 mg tablet 500 mg PO Q6H PRN (Reason: pain or fever) Qty: 10 0RF lidocaine [Lidoderm] 5 % adhesive patch,medicated 1 patch topical DAILY MDD remove after 12 hours PRN (Reason: pain) Qty: 30 0RF Rx Instructions: leave on most painful area for up to 12 hrs naproxen 500 mg tablet 500 mg PO BID PRN (Reason: pain) 10 Days Qty: 10 0RF albuterol sulfate [ProAir HFA] 90 mcg/actuation HFA aerosol inhaler 2 puff PO QID PRN0RF aripiprazole 10 mg tablet 10 mg PO QAM 0RF prazosin 2 mg capsule 4 mg PO BEDTIME 0RF mirtazapine 30 mg tablet 30 mg PO BEDTIME 0RF clonazepam 1 mg tablet 0 mg PO 0RF fluoxetine 40 mg capsule 80 mg PO DAILY 0RF ibuprofen 600 mg tablet 600 mg PO TID PRN (Reason: pain) Qty: 30 0RF Stand Alone Forms: Work/School Release Interventions: ED Discharge Assessment Last Done: 10/15/21 17:17 Discharge Date/Time: 10/15/21 17:18 Print Language: Arabic
[2021-10-15 17:16] VITALS: BP 144/89; PULSE 69; RESP 16; O2SAT 99
== END 2021-10-15 17:18 | disposition home or self-care (01) ==
PROVIDERS: Emergency Provider Emergency Medicine
DX: M54.12 Radiculopathy, cervical region (principal); M54.16 Radiculopathy, lumbar region
CPT/HCPCS: 99283; 99284

== ENCOUNTER → 2021-10-18 13:54 | Outpatient (BNVA) | payer MEDICAID, SELFPAY | PROVIDERS: Visit Provider Surgery | DX: K40.90 Unilateral inguinal hernia, without obstruction or gangrene, not specified as recurrent (principal); I25.10 Atherosclerotic heart disease of native coronary artery without angina pectoris | CPT/HCPCS: 99202 ==

== ENCOUNTER 2021-10-26 13:49 | Outpatient (REF) | payer MEDICAID, SELFPAY ==
--- NOTE | ~2021-10-26 | CT_ITS ---
EXAMINATION: CT ABDOMEN AND PELVIS WITHOUT CONTRAST CLINICAL INFORMATION: Inguinal hernia without obstruction COMPARISON: None TECHNIQUE: Multidetector volumetric imaging was performed from the superior aspect of the liver through the pubic symphysis. Sagittal and coronal reformatted images were obtained on the technologist's workstation. This CT examination was performed using dose optimization techniques as appropriate, variously including the following: *Automated exposure control *Adjustment of mA and/or kV according to patient size (this includes techniques or standardized protocols for targeted exams where dose is matched to indication/reason for exam; i.e. extremities or head) *Use of iterative reconstruction technique DLP: 544 mGy-cm FINDINGS: LUNG BASES: The visualized lung bases are unremarkable. LIVER, GALLBLADDER, AND BILIARY TREE: The liver is normal in size, shape, and attenuation. No focal hepatic lesion or biliary ductal dilatation is present. The gallbladder is unremarkable with no evidence of radiopaque gallstones, gallbladder wall thickening, or obvious pericholecystic inflammatory changes. PANCREAS: Unremarkable. SPLEEN: Unremarkable. ADRENAL GLANDS: Unremarkable. KIDNEYS AND URETERS: The kidneys are normal in size, shape, and attenuation. No hydronephrosis, hydroureter, or calculi seen. No perinephric stranding. BLADDER: Unremarkable. GASTROINTESTINAL TRACT: There is a question of area of wall thickening of the proximal right colon for example axial image 39 series 3. There is stool throughout the colon. The small and large bowel are unremarkable. The appendix is unremarkable. ABDOMINAL WALL: There is a small umbilical hernia containing fat. There is a small left inguinal hernia containing fat. LYMPH NODES: Normal. VASCULAR: Unremarkable. PELVIC VISCERA: Unremarkable. OSSEOUS STRUCTURES: There are mild degenerative changes of the spine. CT/CT abdomen pelvis wo con IMPRESSION: Small left inguinal and umbilical hernias containing fat. Stool throughout the colon suggestive of constipation. Question focal area of wall thickening of the proximal right colon. Correlation with colonoscopy findings recommended. Fleischner guidelines were followed.
== END 2021-10-26 13:50 | disposition home or self-care (01) ==
LOC: HO.CT 13:49
PROVIDERS: Visit Provider Surgery
DX: K40.90 Unilateral inguinal hernia, without obstruction or gangrene, not specified as recurrent (principal)
CPT/HCPCS: 74176

== ENCOUNTER 2021-10-30 09:13 | Outpatient (REF) | payer MEDICAID, SELFPAY ==
--- NOTE | ~2021-10-30 | XR_ITS ---
EXAMINATION: XR WRIST, LEFT CLINICAL INFORMATION: M25.532 - Pain in left wrist COMPARISON: Radiographs left wrist 10/02/2021 TECHNIQUE: Left wrist is imaged in 4 views. FINDINGS: No acute or healing fracture, dislocation, destructive process. Ulnar variance is neutral. There is dorsal bowing distal ulnar on lateral view the carpus shows no joint narrowing or erosive change or chondrocalcinosis. Normal bony mineralization. XR/XR wrist LT w scaphoid IMPRESSION: -Mild dorsal bowing distal ulnar. -No fracture, dislocation, or arthropathy.
== END 2021-10-30 09:14 | disposition home or self-care (01) ==
LOC: HO.HOSX 09:13
PROVIDERS: Visit Provider Orthopaedic Surgery
DX: S52.502D Unspecified fracture of the lower end of left radius, subsequent encounter for closed fracture with routine healing (principal)
CPT/HCPCS: 73110; 99212

== ENCOUNTER → 2021-11-07 14:54 | Outpatient (BNVA) | payer MEDICAID, SELFPAY | PROVIDERS: PCP Family Medicine; Visit Provider Surgery | DX: K40.90 Unilateral inguinal hernia, without obstruction or gangrene, not specified as recurrent (principal); I25.10 Atherosclerotic heart disease of native coronary artery without angina pectoris | CPT/HCPCS: 99212 ==

== ENCOUNTER 2021-12-31 13:00 | Outpatient (RCR) | payer MEDICAID, SELFPAY ==
--- NOTE | 2021-11-12 16:52 | MHC.OT.OEV ---
[address] [phone] F: [phone] Occupational Therapy Evaluation Diagnosis: Left DR fernández Date of Onset: 09/16/21 Date of Surgery: Attending Provider: Elise Coats MD Prescribed Treatment: Eval and treat. Work on ROM, normalize activities MD Follow Up Appointment: History of Current Condition: Pt reports a fall on right side due to stepping on a water bottle on the floor at [employer] Went to the ED the next morning... Pt seen by Dr Coats in Orthopedics here at [facility] . XR'S taken in the ED and in the Ortho dept . Pt referred to OT on 10/31/21. 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 Forearm brace jimenez Nerve assessment Ulnar Nerve: Median Nerve: Radial Nerve: Comments: Sensory Assessment Temperature: Light Touch: WNL Proprioception: Vibration: Comments: Edema Assessment Upper Extremity: WNL Lower Extremity: Comments: Dexterity Assessment Dexterity: WNL Comments: Special Tests Comments: AROM(PROM) Strength Cervical Cervical Flexion: Cervical Extension: Cervical Lateral Flexion: Cervical Rotation: Comments: Shoulder Flexion: Extension: Abduction: Internal Rotation: External Rotation: Comments: Flexion: Extension: Abduction: Internal Rotation: External Rotation: Comments: Elbow Flexion: Extension: Pronation: Supination: Comments: Flexion: Extension: Pronation: Supination: Comments: Wrist Flexion: R 60 L 60 Extension: R 55 L 55 Ulnar Deviation: R 10 L 10 Radial Deviation: R 25 L 25 Comments: Flexion: Extension: Ulnar Deviation: Radial Deviation: Comments: Thumb Thumb CMC Flexion: Thumb MCP Flexion: Thumb IP Flexion: Radial Abduction: Palmar Abduction: [place] (Kapandji 0-10): Comments: WNL Digits Index MCP: PIP: DIP: Long MCP: PIP: DIP: Ring MCP: PIP: DIP: Small MCP: PIP: DIP: Comments: WNL Gross Grasp: R 65 L 40 Lateral Pinch: Two-Point Pinch: Three-Jaw Fabrizio: Comments: Painfree customer service sales consultant Patient Education Primary Language: Serbian Principal Associate Required: No Current Knowledge: Minimal, needs reinforcement Teaching Method: Demonstration Verbal Education Needs Identified on Evaluation: Disease Information Exercise How did patient/family demonstrate learning? Patient demonstrates Patient verbalizes Barriers to Learning: None Readiness for Learning: Accepting Who was educated? Patient Comments: Plan of Care Assessment: Pt is a 51 yo male 8 wks s/p right DR fx due to a fall at [employer]. 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 Generally he is avoiding use. Wrist and hand ROM are WNL Pt now in a pre tyrone wrist splint most of the time and referred to OT to begin ROM and functional activities. He is ready to begin weaning from his splint STG Duration: 2 wks Short Term Goals: Demo indep with HEP including light eccentric wrist ex Weaning from wrist splint for protection only Left customer service sales consultant to 45 lb Left hand use for assist with all ADL LTG Duration: 4 wks Retirement Goals: Indep with HEP Tolerate isotonic wrist ex Tolerate partial wt bearing on left hand Left customer service sales consultant to >55 lb Mild difficulty with daily activities with modifications as needed Frequency and Duration: The patient will be seen 2x wk x 4wk Treatment Plan: Therapeutic Exercise Therapeutic Activity Home Exercise Program Patient Education ADL Training Electronically Signed By: Caridad Nicolas OT CHT CLT Reviewed/agree with student documentation: N/A Therapist: Please sign and return to therapist, Thank you for your referral.
--- NOTE | 2021-12-31 13:28 | MHC.OT.DC ---
[address] [phone] F: [phone] Occupational Therapy Discharge Note Provider: Dr Coats Diagnosis: Left DR fernández Date of Evaluation: 11/12/21 Date of Discharge: 12/31/21 Treatments to Date: 8 Discharge Status: Achieved Goals Improved Function Independent with HEP Discharge Summary: Nelson is now 15 weeks s/p left distal radius fracture w/ non-operative conservative tx, he is doing well and progressing w/ strengthening. He has good range compared to right, and gross grasp WFL. He briefly demo'd some signs of ulnar neuropathy aggravated w/ nighttime sleeping position, but has improved w/ exercise and has been educated on joint protection/activity modification. He is Ind w/ home program and has been very motivated throughout therapy. Electronically Signed By: DARLING Sanchez/Lang LYNT Reviewed/agree with student documentation: N/A Therapist: Please Sign and return to therapist, thank you for your referral.
== END 2021-12-31 13:29 | disposition home or self-care (01) ==
LOC: HO.OT 13:00
PROVIDERS: PCP Family Medicine; Visit Provider Orthopaedic Surgery
DX: S52.502A Unspecified fracture of the lower end of left radius, initial encounter for closed fracture (principal)
CPT/HCPCS: 97110; 97140; 97165